=== PATIENT | female | born 1960 | race Caucasian/White ===

== ENCOUNTER → 2016-06-28 | Outpatient (CLI) | payer BC ==
[2016-06-28 13:20] LABS: ALBUMIN 3.9 GM/DL (3.2-5.2); ALBUMIN/GLOBULIN RATIO 1.11 (1.00-1.93); ALKALINE PHOSPHATASE 123 U/L (45-117); ALT/SGPT 34 U/L (12-78); ANION GAP 7 MEQ/L (8-16); AST/SGOT 24 U/L (15-37); BILIRUBIN,TOTAL 0.4 MG/DL (0.2-1.0); BLOOD UREA NITROGEN 17 MG/DL (7-18); CALCIUM LEVEL 9.4 MG/DL (8.5-10.1); CARBON DIOXIDE LEVEL 30 MEQ/L (21-32); CHLORIDE LEVEL 105 MEQ/L (98-107); CHOLESTEROL LEVEL 215 MG/DL (<200); CREATININE FOR GFR 0.71 MG/DL (0.55-1.02); FREE T4 1.38 NG/DL (0.76-1.46); GLOMERULAR FILTRATION RATE > 60.0 (>51); GLUCOSE, FASTING 92 MG/DL (70-105); POTASSIUM SERUM 4.2 MEQ/L (3.5-5.1); SODIUM LEVEL 142 MEQ/L (136-145); TOTAL PROTEIN 7.4 GM/DL (6.4-8.2); TRIGLYCERIDES LEVEL 133 MG/DL (<150)
== END ==
LOC: M WUC 09:04
PROVIDERS: ATTEND Nurse Practitioner Family
DX: E78.4 Other hyperlipidemia (principal); E03.9 Hypothyroidism, unspecified

== ENCOUNTER → 2016-09-10 | Outpatient (CLI) | payer BC ==
[2016-09-10 19:04] LABS: ALBUMIN 3.6 GM/DL (3.2-5.2); ALBUMIN/GLOBULIN RATIO 1.09 (1.00-1.93); ALKALINE PHOSPHATASE 135 U/L (45-117); ALT/SGPT 27 U/L (12-78); ANION GAP 6 MEQ/L (8-16); AST/SGOT 20 U/L (15-37); BILIRUBIN,TOTAL 0.3 MG/DL (0.2-1.0); BLOOD UREA NITROGEN 15 MG/DL (7-18); CALCIUM LEVEL 8.6 MG/DL (8.5-10.1); CARBON DIOXIDE LEVEL 28 MEQ/L (21-32); CHLORIDE LEVEL 107 MEQ/L (98-107); CHOLESTEROL LEVEL 184 MG/DL (<200); CREATININE FOR GFR 0.73 MG/DL (0.55-1.02); FREE T4 1.28 NG/DL (0.76-1.46); GLOMERULAR FILTRATION RATE > 60.0 (>51); GLUCOSE, FASTING 89 MG/DL (70-105); POTASSIUM SERUM 4.2 MEQ/L (3.5-5.1); SODIUM LEVEL 141 MEQ/L (136-145); TOTAL PROTEIN 6.9 GM/DL (6.4-8.2); TRIGLYCERIDES LEVEL 122 MG/DL (<150)
== END ==
LOC: M WUC 08:47
PROVIDERS: ATTEND Nurse Practitioner Family
DX: E55.9 Vitamin D deficiency, unspecified (principal); E03.9 Hypothyroidism, unspecified; E78.4 Other hyperlipidemia

== ENCOUNTER → 2017-05-06 | Outpatient (CLI) | payer BC ==
[2017-05-06 17:23] LABS: ALBUMIN 3.4 GM/DL (3.2-5.2); ALBUMIN/GLOBULIN RATIO 0.94 (1.00-1.93); ALKALINE PHOSPHATASE 131 U/L (45-117); ALT/SGPT 29 U/L (12-78); ANION GAP 6 MEQ/L (8-16); AST/SGOT 19 U/L (7-37); BILIRUBIN,TOTAL 0.3 MG/DL (0.2-1.0); BLOOD UREA NITROGEN 14 MG/DL (7-18); CALCIUM LEVEL 8.4 MG/DL (8.5-10.1); CARBON DIOXIDE LEVEL 28 MEQ/L (21-32); CHLORIDE LEVEL 110 MEQ/L (98-107); CHOLESTEROL LEVEL 199 MG/DL (<200); CHOLESTEROL RISK RATIO 4.326 (<5); CREATININE FOR GFR 0.72 MG/DL (0.55-1.30); FREE T3 2.4 PG/ML (2.2-4.0); FREE T4 1.08 NG/DL (0.76-1.46); GLOMERULAR FILTRATION RATE > 60.0 (>51); GLUCOSE, FASTING 89 MG/DL (70-100); HDL CHOLESTEROL 46 MG/DL (>40); NON-HDL-C 153 MG/DL; SODIUM LEVEL 144 MEQ/L (136-145); TOTAL 25(OH) VITAMIN D 40.1 NG/ML (30.0-100.0); TRIGLYCERIDES LEVEL 170 MG/DL (<150)
== END ==
LOC: M WUC 11:07
DX: E55.9 Vitamin D deficiency, unspecified (principal); E03.9 Hypothyroidism, unspecified; E78.4 Other hyperlipidemia
CPT/HCPCS: 84443

== ENCOUNTER → 2017-11-07 | Outpatient (CLI) | payer BC ==
[2017-11-07 13:47] LABS: BASO % 0.3 % (0.0-1.0); EOS # 0.1 10^3/uL (0.0-0.50); EOS % 1.5 % (0.0-3.0); HEMATOCRIT 37.8 % (36.0-47.0); HEMOGLOBIN 12.2 g/dl (12.0-15.5); IMMATURE GRANULOCYTE % 0.4 % (0-3.0); LYMPH # 2.5 10^3/uL (1.5-4.5); LYMPH % 34.3 % (24.0-44.0); MEAN CORPUSCULAR HEMOGLOBIN 28.3 pg (27.0-33.0); MEAN CORPUSCULAR HGB CONC 32.3 g/dl (32.0-36.5); MEAN CORPUSCULAR VOLUME 87.7 fl (80.0-96.0); MONO # 0.6 10^3/uL (0.0-0.8); MONO % 7.6 % (0.0-5.0); NEUTROPHILS # 4.1 10^3/uL (1.8-7.7); NEUTROPHILS % 55.9 % (36.0-66.0); PLATELET COUNT, AUTOMATED 231 10^3/uL (150-450); RED BLOOD COUNT 4.31 10^6/uL (4.00-5.40); RED CELL DISTRIBUTION WIDTH 14.1 % (11.5-14.5); WHITE BLOOD COUNT 7.3 10^3/uL (4.0-10.0)
[2017-11-07 14:42] LABS: TOTAL 25(OH) VITAMIN D 28.7 NG/ML (30.0-100.0)
[2017-11-07 14:44] LABS: ALBUMIN 3.6 GM/DL (3.2-5.2); ALBUMIN/GLOBULIN RATIO 0.92 (1.00-1.93); ALKALINE PHOSPHATASE 138 U/L (45-117); ALT/SGPT 31 U/L (12-78); ANION GAP 9 MEQ/L (8-16); AST/SGOT 16 U/L (7-37); BILIRUBIN,TOTAL 0.4 MG/DL (0.2-1.0); BLOOD UREA NITROGEN 8 MG/DL (7-18); CALCIUM LEVEL 8.8 MG/DL (8.5-10.1); CARBON DIOXIDE LEVEL 29 MEQ/L (21-32); CHLORIDE LEVEL 104 MEQ/L (98-107); CHOLESTEROL LEVEL 213 MG/DL (<200); CHOLESTEROL RISK RATIO 4.733 (<5); CREATININE FOR GFR 0.67 MG/DL (0.55-1.30); FREE T3 2.7 PG/ML (2.2-4.0); GLOMERULAR FILTRATION RATE > 60.0 (>51); GLUCOSE, FASTING 88 MG/DL (70-100); HDL CHOLESTEROL 45 MG/DL (>40); LDL CHOLESTEROL 118.4 MG/DL (<100); NON-HDL-C 168 MG/DL; POTASSIUM SERUM 4.2 MEQ/L (3.5-5.1); SODIUM LEVEL 142 MEQ/L (136-145); TOTAL PROTEIN 7.5 GM/DL (6.4-8.2); TRIGLYCERIDES LEVEL 248 MG/DL (<150)
== END ==
LOC: M WUC 08:16
DX: K21.9 Gastro-esophageal reflux disease without esophagitis (principal); E55.9 Vitamin D deficiency, unspecified; E03.9 Hypothyroidism, unspecified; E78.4 Other hyperlipidemia
CPT/HCPCS: 84443

== ENCOUNTER → 2018-06-24 | Outpatient (REF) | LOC: M LAB 08:27 | PROVIDERS: ATTEND Nurse Practitioner Adult Health | DX: Z02.89 Encounter for other administrative examinations (principal) ==

== ENCOUNTER → 2019-04-03 | Outpatient (REF) | payer BC ==
[2019-04-03 12:19] LABS: ALBUMIN 3.6 GM/DL (3.2-5.2); ALT/SGPT 27 U/L (12-78); BILIRUBIN,TOTAL 0.4 MG/DL (0.2-1.0); BLOOD UREA NITROGEN 11 MG/DL (7-18); CALCIUM LEVEL 8.9 MG/DL (8.5-10.1); CARBON DIOXIDE LEVEL 26 MEQ/L (21-32); CHLORIDE LEVEL 107 MEQ/L (98-107); CHOLESTEROL LEVEL 198 MG/DL (<200); CREATININE FOR GFR 0.76 MG/DL (0.55-1.30); GLOMERULAR FILTRATION RATE > 60.0 (>51); GLUCOSE, FASTING 90 MG/DL (70-100); HDL CHOLESTEROL 50 MG/DL (>40); LDL CHOLESTEROL 109 MG/DL (<100); NON-HDL-C 148 MG/DL; POTASSIUM SERUM 4.1 MEQ/L (3.5-5.1); SODIUM LEVEL 141 MEQ/L (136-145); TOTAL PROTEIN 7.2 GM/DL (6.4-8.2); TRIGLYCERIDES LEVEL 197 MG/DL (<150)
== END ==
LOC: M SFHCPLAZ 10:20
PROVIDERS: ATTEND Nurse Practitioner Adult Health
DX: I10 Essential (primary) hypertension (principal); E78.2 Mixed hyperlipidemia; E03.9 Hypothyroidism, unspecified; E55.9 Vitamin D deficiency, unspecified

== ENCOUNTER → 2019-06-11 | Outpatient (CLI) | payer BC ==
--- NOTE | 2019-06-12 08:19 | REPMRS ---
Patient History The patient states she had a clinical breast exam in May 2019.Family history of colorectal cancer at age 50 or over in paternal grandmother, colorectal cancer at age 50 or over in maternal grandfather. Benign radio exam breast specimen, September 06, 2014. Benign localization of breast nodule of the left breast, September 06, 2014. Digital Woman Screen Mammo: June 11, 2019 - Exam #: [id number] Bilateral CC and MLO view(s) were taken. Technologist: Li Dutton, Technologist Prior study comparison: April 06, 2015, left breast digital mammo diagnostic unilateral, performed at [facility]. May 26, 2014, left breast digital mammo diagnostic unilateral, performed at [facility]. FINDINGS: There are scattered fibroglandular densities. There has been no change in the appearance of the mammogram from the prior studies. There is a mild amount of scattered fibroglandular density which is fairly symmetric. There is no interval development of dominant mass, architectural distortion, or grouped microcalcification suggestive of malignancy. 3-D tomosynthesis shows no additional findings. Assessment: BI-RADS/ACR category 1 mammogram. Negative Mammogram. Recommendation Routine screening mammogram of both breasts in 1 year (for women over age 40). is patient's Lifetime Breast Cancer Risk is estimated at 7.3 %. This mammogram was interpreted with the aid of an FDA-approved computer-aided dectection system. Electronically Signed By: Mehran Rodríguez MD 06/12/19 0818
== END ==
LOC: M WHC 16:10
PROVIDERS: ATTEND Nurse Practitioner Adult Health
DX: Z12.31 Encounter for screening mammogram for malignant neoplasm of breast (principal)

== ENCOUNTER → 2019-10-01 | Outpatient (REF) | payer BC | LOC: M SFHCPLAZ 15:44 | PROVIDERS: ATTEND Nurse Practitioner Adult Health | DX: E03.9 Hypothyroidism, unspecified (principal) ==

== ENCOUNTER → 2019-10-19 | Outpatient (CLI) | payer BC ==
--- NOTE | 2019-10-19 10:37 | PFTRPT ---
Height: 65.00 Inches Weight: 309.00 Lbs BSA: 2.38 Diagnosis: R06.02 DATE OF PROCEDURE: 10/19/2019 ORDERED BY: Tatum Santana Spirometry: Pre and post bronchodilator study of excellent technical quality. Some mild difficulty with effort. Forced vital capacity reduced. FEV1 in proportion. Obstructive index is, therefore, normal. Flow Volume Loop: Expiratory limb of the flow volume loop does suggest a restrictive impairment. No significant bronchodilator response identified. Lung Volumes: Total lung capacity reduced. Residual volume is in proportion. Diffusing Capacity: Diffusing capacity normal. Hemoglobin: Hemoglobin not available for correction. Airway Mechanics: Airway resistance and conductance are normal. IMPRESSION: Mild restrictive ventilatory impairment. Please correlate clinically. MTDD
== END ==
LOC: M CARPUL 09:48
PROVIDERS: ATTEND Nurse Practitioner Adult Health
DX: R06.02 Shortness of breath (principal)

== ENCOUNTER → 2019-11-09 | Outpatient (CLI) | payer BC ==
--- NOTE | 2019-12-10 12:24 | PFTRPT ---
Height: 65.00 Inches Weight: 310.00 Lbs BSA: 2.38 Diagnosis: R06.02 DATE OF STUDY: 11/09/2019 ORDERED BY: ARTURO Nathan. QUALITY: Study of excellent technical quality. PROCEDURE: Under protocol, methacholine was administered. At a dose of 25 mg or 188.875 CDUs, a 25% decline of the FEV1 was noted, but PC of 14.28 does not meet diagnostic criteria. Flow rates did return to baseline post-bronchodilator administration. IMPRESSION: Indeterminate, most likely negative, methacholine challenge study in view of the above. Please correlate clinically. MTDD
--- NOTE | 2019-12-11 15:34 | METHCHAL ---
Ordering Provider: Tatum Santana R.N., A.N.P. Quality: Study is excellent technical quality. Procedure: Under protocol, methacholine is administered. With a dose of 25 mg or 18.875 CVUs, a 25% decline in the FEV1 was noted. PC of 14.28, however, does not meet diagnostic criteria. IMPRESSION: Indeterminant study. Flow rates did return to baseline post bronchodilator administration. Please correlate clinically MTDD
== END ==
LOC: M CARPUL 12:45
PROVIDERS: ATTEND Nurse Practitioner Adult Health
DX: R06.02 Shortness of breath (principal)

== ENCOUNTER → 2019-12-18 | Outpatient (CLI) | payer BC ==
--- NOTE | 2020-01-01 09:04 | REPPI ---
LUMBOSACRAL SPINE SERIES: CLINICAL: Lower back pain. TECHNIQUE: AP, lateral, bilateral oblique and coned down views of the lumbosacral spine. FINDINGS: Generalized age related osteopenia is appreciated. Alignment and lordosis are maintained. Vertebral bodies are intact and without acute fracture/compression injury or subluxation. No obvious healed injury. Moderate multilevel degenerative changes include endplate sclerosis, marginal spurring, hypertrophic facet changes and minimal disc space narrowing at multiple levels. IMPRESSION: Age related osteopenia and moderate multilevel degenerative changes. No evidence of acute or healed injury. MTDD
== END ==
LOC: M PLAIMG 09:28
PROVIDERS: ATTEND Nurse Practitioner Adult Health
DX: M25.78 Osteophyte, vertebrae (principal); M54.5 Low back pain

== ENCOUNTER → 2020-01-21 | Outpatient (CLI) | payer BC ==
[~2020-01-21] MED LIST: PROHANCE 279.3MG/ML 15ML VIAL As Ordered ONE; PROHANCE 279.3MG/ML 5ML VIAL As Ordered ONE
--- NOTE | 2020-01-21 18:36 | REPVR ---
PROCEDURE INFORMATION: Exam: MR Lumbar Spine Without and With Contrast. Exam date and time: 01/21/2020 4:51 PM Age: 59 years old Clinical indication: Other: Radiculopathy lumbar myelop ? hnp stenosi mets TECHNIQUE: Imaging protocol: Multiplanar magnetic resonance images of the lumbar spine without and with intravenous contrast. Contrast material: PROHANCE; Contrast volume: 20 ml; Contrast route: INTRAVENOUS (IV); COMPARISON: CR SPINE LS COMPLETE 12/18/2019 10:00 AM FINDINGS: Vertebrae: There is no lumbar vertebral fracture. The lumbar vertebra maintain their height and alignment. There are incidental hemangiomas noted, the largest within the L2 and L4 vertebral bodies. Stir images demonstrate no evidence of bone marrow edema or marrow infiltrating lesion. There is no abnormal bone marrow enhancement. Spinal cord: The lower thoracic spinal cord, conus and cauda equina are normal. No abnormal enhancement. L1-L2: No significant disc disease. No significant spinal canal stenosis. No neural foraminal stenosis. L2-L3: No disc bulge. There is mild facet hypertrophy. No central or foraminal stenosis. L3-L4: Minimal disc bulge. There is facet hypertrophy. There is mild left foraminal stenosis. No central stenosis. L4-L5: Mild disc bulge and facet hypertrophy with mild bilateral foraminal stenosis. There is a small more focal protrusion of the disc within the inferior aspect of neural foramen,, effacing the fat along the undersurface of the exiting right L4 nerve root. No central stenosis. L5-S1: No disc bulge. Facet hypertrophy mildly narrowing the right foramen. No central stenosis. Soft tissues: There is no paraspinous or intraspinal mass, hemorrhage, fluid collection or abnormal enhancement. IMPRESSION: 1. No lumbar fracture. No evidence of metastatic disease in the lumbar spine. 2. Mild disc disease and facet arthropathy, detailed above. No central stenosis. Electronically signed by: Danish Paulino On 01/21/2020 18:36:20 PM
== END ==
LOC: M RAD 14:44
PROVIDERS: ATTEND Physician Assistant
DX: M47.817 Spondylosis without myelopathy or radiculopathy, lumbosacral region (principal); M51.26 Other intervertebral disc displacement, lumbar region
CPT/HCPCS: 72158; A9576

== ENCOUNTER 2020-01-25 08:51 | Outpatient (RCR) | payer BC | END 2020-01-30 | LOC: M PT 08:51 | PROVIDERS: ATTEND Physician Assistant | DX: M47.817 Spondylosis without myelopathy or radiculopathy, lumbosacral region (principal) ==

== ENCOUNTER → 2020-06-16 | Outpatient (REF) | payer BC ==
[2020-06-16 14:21] LABS: ALBUMIN 3.8 GM/DL (3.2-5.2); ALT/SGPT 32 U/L (12-78); BILIRUBIN,TOTAL 0.3 MG/DL (0.2-1.0); BLOOD UREA NITROGEN 21 MG/DL (7-18); CALCIUM LEVEL 9.5 MG/DL (8.5-10.1); CARBON DIOXIDE LEVEL 32 MEQ/L (21-32); CHLORIDE LEVEL 103 MEQ/L (98-107); CHOLESTEROL LEVEL 203 MG/DL (<200); CHOLESTEROL RISK RATIO 4.413 (<5); CREATININE FOR GFR 0.79 MG/DL (0.55-1.30); GLOMERULAR FILTRATION RATE > 60.0 (>51); GLUCOSE, FASTING 108 MG/DL (70-100); HDL CHOLESTEROL 46 MG/DL (>40); LDL CHOLESTEROL 109 MG/DL (<100); NON-HDL-C 157 MG/DL; POTASSIUM SERUM 3.8 MEQ/L (3.5-5.1); SODIUM LEVEL 140 MEQ/L (136-145); TOTAL PROTEIN 7.6 GM/DL (6.4-8.2); TRIGLYCERIDES LEVEL 238 MG/DL (<150)
[2020-06-16 15:57] LABS: TOTAL 25(OH) VITAMIN D 66.2 NG/ML (30.0-100.0)
== END ==
LOC: M SFHCPLAZ 11:22
PROVIDERS: ATTEND Nurse Practitioner Adult Health
DX: E55.9 Vitamin D deficiency, unspecified (principal); I10 Essential (primary) hypertension; E78.2 Mixed hyperlipidemia; E03.9 Hypothyroidism, unspecified

== ENCOUNTER → 2020-07-07 | Outpatient (CLI) | payer BC ==
--- NOTE | 2020-07-07 10:44 | REPMRS ---
Patient History The patient states she has not had a clinical breast exam in over a year. Family history of colorectal cancer at age 50 or over in paternal grandmother, colorectal cancer at age 50 or over in maternal grandfather. Benign radio exam breast specimen, September 06, 2014. Benign localization of breast nodule of the left breast, September 06, 2014. 3D TOMOSYNTHESIS WAS PERFORMED. The [facility] lifetime risk for breast cancer is 7.1%. Volpara breast density b. Digital Woman Screen Mammo: July 07, 2020 - Exam #: [id number] Bilateral CC and MLO view(s) were taken. Technologist: RT Martha Prior study comparison: June 11, 2019, bilateral digital woman screen mammo performed at [facility]. April 06, 2015, left breast digital mammo diagnostic unilateral, performed at [facility]. FINDINGS: There are scattered fibroglandular densities. There has been no change in the appearance of the mammogram from the prior studies. There is a mild amount of residual fibroglandular tissue which is fairly symmetric. There is no interval development of dominant mass, architectural distortion, or clustered microcalcification suggestive of malignancy. Assessment: BI-RADS/ACR category 1 mammogram. Negative Mammogram. Recommendation Routine screening mammogram in 1 year (for women over age 40). This mammogram was interpreted with the aid of an FDA-approved computer-aided dectection system. Electronically Signed By: Dada Shafer MD 07/07/20 1045
== END ==
LOC: M WHC 08:56
PROVIDERS: ATTEND Nurse Practitioner Adult Health
DX: Z12.31 Encounter for screening mammogram for malignant neoplasm of breast (principal)

== ENCOUNTER 2021-01-16 07:31 | Emergency (ER) | payer OTHER, BC ==
[~2021-01-16] VITALS: Ht 165.1 cm; Wt 140.4 kg
--- OUTSIDE RECORDS SUMMARY | 2021-01-16 07:36 | CCD | Continuity of Care Document ---
Author Author Kenisha CORTEZ PA-C Organization Unknown Address [address] [place] [address] Phone [phone] Care Team Providers Care Automobile Mechanic Apprentice Name Role Phone Tatum Santana AUTM [phone] Problems Description No Active Problems Social History Type Date Description Comments Sex Unknown ETOH Use Denies alcohol use Tobacco Use Start: Unknown Patient has never smoked Allergies, Adverse Reactions, Alerts Active Allergies Criticality Reaction | Severity Comments Date Penicillin Unable to assess criticality 09/09/2014 sulfa drugs Unable to assess criticality 09/09/2014 Morphine Unable to assess criticality 09/09/2014 Medications Active Medications SIG Qnty Indications Ordering Provide r Date Multi Vitamin Daily Tablets every day Unknown Gemfibrozil 600mg Tablets 1 by mouth twice a day Unknown Levothyroxine Sodium 200mcg Tablet s 1 by mouth every day Unknown Paroxetine HCL 20mg Tablets 1 by mouth every day Unknown Prilosec 20mg Capsules DR 1 by mouth every day Unknown Lumigan 0.01% Solution once a day as directed Unknown Zyrtec 20mg Capsules po qd Unknown Lipitor 40mg Tablets 1 by mouth every day Unknown Flaxseed Oil 1000mg Capsules every day Unknown Motrin Ib 200mg Tablets po 3 at a time qd Unknown Immunizations Description No Information Available Vital Signs Date Vital Result Comment 01/01/2020 9:54am Body Temperature 96.7 F Height 64.5 inches 5'4.50" Weight 309.12 lb BMI (Body Mass Index) 52.2 kg/m2 06/02/2015 9:24am Body Temperature 99.5 F Results Description No Information Available Procedures Date Code Description Status 12/12/2020 60439 Office/Outpatient Established Mo d MDM 30-39 Min Completed 12/12/2020 99092 X-Ray Spine Lumbosacral Complete Inc Bending Views Min Of 6 Completed Medical Devices Description No Information Available Encounters Type Date Location Provider Dx Diagnosis Office Visit 12/12/2020 3:45p [place] James Cortez PA-C M4 7.817 Spondyls w/o myelopathy or radiculopathy, lumbosacr region M51.35 Other intervertebral disc de generation, thoracolumbar region Assessments Date Code Description Provider 12/12/2020 M47.817 Spondylosis without myelopathy or radiculopathy, lumbosacral region James Cortez PA-C 12/12/2020 M51.35 Other intervertebral disc degene ration, thoracolumbar region James Cortez PA-C Plan of Treatment 12/12/2020 - James Cortez PA-C* M47.817 Spondylosis without myelopathy or radiculopathy, lumbosacral region* New Orders:* Referral, Ordered: 12/12/20 * Follow up:* PRN * M51.35 Other intervertebral disc degeneration, thoracolumbar region Functional Status Description No Information Available Mental Status Description No Information Available Referrals Description No Information Available
--- OUTSIDE RECORDS SUMMARY | 2021-01-16 07:36 | CCD ---
Author Author [facility] Organization [facility] Address Unknown Phone Unavailable Care Team Providers Care [employer] Assistant Principal Name Role Phone Tatum Santana Unavailable PROBLEMS Type Condition ICD9-CM Code LEO59-FW Code Onset Dates Condition S tatus W/U Status Risk SNOMED Code Notes Problem Irritable bowel syndrome with diarrhea K58.0 A ctive confirmed 765135049 Problem Restless leg syndrome G25.81 Active confirmed 61312963 Problem Acquired hypothyroidism E03.9 Active confirmed 866207707 Problem Glaucoma of both eyes, unspecified glaucoma type H 40.9 Active confirmed 49651782 Problem Environmental allergies Z91.09 Active confirmed 968665645 Problem Mixed hyperlipidemia E78.2 Active confirmed 092340868 Problem BMI 50.0-59.9, adult Z68.43 Active confirmed 872726435 Problem Obesity, morbid, BMI 50 or higher E66.01 Active confirmed 687586438 Problem Essential hypertension I10 Active confirmed 95733570 Problem Vitamin D deficiency E55.9 Active confirmed 05478103 Problem Lumbago with sciatica, left side M54.42 Active confirmed 309331702 Problem Other chronic pain G89.29 Active confirmed 8 1670384 ALLERGIES Allergen (clinical drug ingredient) Drug/Non Drug Allergy do cumented on EMR Reaction Allergy Type Onset Date Status Sulfa (for allergy use only) Hives Drug Allergy Active Penicillin (For Allergies Use Only) SOB Drug Allerg y Active tape rash Non Drug Allergy Active cold medicine "Higher than a kite" pt states Non Drug Philippe rgy Active morphine Morphine Sulfate(NDC Code:[address]-95) "Higher than a kite" pt states Drug Allergy Active Neosporin(NDC Code:02819-73536) rash/ blisters Drug Allerg y Active Eggs/Apples/Oats([facility] Code:40132-[address]4905) Unknown Drug All ergy Active ENCOUNTERS from 1960 to 2020-10-29 Encounter Location Date Provider Diagnosis [facility] Francois [address] [facility] [facility] [phone] [place] [address] Sep, Tatum Servage Lumbago with sciatica, left side M54.42 ; Essential hypertension I10 ; Irritable bowel syndrome with diarrhea K58.0 ; Glaucoma of both eyes, unspecified glaucoma type H40.9 ; Mixed hyperlipidemia E78.2 ; Acquired hypothyroidism E03.9 ; Obesity, morbid, BMI 50 or higher E66.01 ; Vitamin D deficiency E55.9 ; Dizzy spells R42 and Environmental allergies Z91.09 IMMUNIZATIONS Vaccine Route Administration Date Status Influenza 6mo & up Fluzone Unknown Jan 26, 2020 Other s SOCIAL HISTORY Tobacco Use: Social History Observation Description Date Details (start date - stop date) Never Smoker Sex Assigned At : Social History Observation Description Sex Assigned At Unknown Education: Question Answer Notes Level of Education: [facility] Audit Question Answer Notes Total Score: 0 Interpretation: Alcohol Education Language: Question Answer Notes Languages spoken: Kinyarwanda Cheondoism: Question Answer Notes Cheondoism 08 Jewish Sexual Hx: Question Answer Notes Had sex in the last 12 months (vaginal, oral, or anal)? No LMP: hysterectomy Have you ever had an STD? No Drug and Alcohol Question Answer Notes Total Score: 0 Interpretation: No problems reported Alcohol Screening: Question Answer Notes Did you have a drink containing alcohol in the past year? No Points 0 Interpretation Negative Tobacco Use: Question Answer Notes Are you a: never smoker never smoker REASON FOR REFERRAL No Information VITAL SIGNS Weight 308.8 lbs Sep, Height 64.5 in Sep, BMI 52.18 kg/m2 Sep, Heart Rate 90 /min Sep, Respiratory Rate 18 /min Sep, Temperature 98.5 degrees Fahrenheit Sep, Oximetry 98% Sep, Blood pressure systolic 122 mm Hg Sep, Blood pressure diastolic 80 mm Hg Sep, MEDICATIONS Medication SIG (Take, Route, Frequency, Duration) Notes Start Da te End Date Status Drisdol 1.25 MG (91810 UT) 1 capsule Orally weekly for 90 days Active Refresh Dry Eye Therapy A ctive Montelukast Sodium 10 MG 1 tablet Orally Once a day for 90 days Jan, Active Paxil 20 mg 1 tablet in the morning Orally Once a day for 90 day(s) Jan, Active Levothyroxine Sodium 175 MCG 1 tablet in the morning o n an empty stomach Orally Once a day for 90 days Active Avapro 75 MG 1 tablet Orally Once a day for 90 days Active Multivitamins otc 1 tablet Orally once a day Active Bacid - 1 tab Orally Daily Active PriLOSEC OTC 20 MG 1 tablet Orally Once a day for 90 day(s) Active Lumigan 0.03 % 1 drop into affected eye every evening Ophthalmic On a day Active Atorvastatin Calcium 80 mg 1 tab(s) p.o. Once a day for 90 days Active Hydrochlorothiazide 12.5 MG 1 tablet in the morning Or ally Once a day for 90 days Active PROCEDURES No Information RESULTS No Results REASON FOR VISIT follow up end september MEDICAL (GENERAL) HISTORY Type Description Date Medical History Hypothyroidism Medical History hypertenison Medical History glaucoma both eyes Medical History seasonal allergies Medical History hyperlipidemia Medical History acid reflux Medical History TMJ Medical History Arthritis Medical History perimenopause Medical History atrophic vaginitis Medical History HRT for 1 yr only after hyster () Medical History morbid obesity (BMI 49.6) Medical History vitamin D deficiency Medical History 06/22/14: Stereotactic Lt brst bx planned ([facility])//NS Medical History 01/21/2020 MRI of the LS spi ne, mild disc disease and facet arthropathy no central stenosis Surgical History hysterectomy, total with BSO- Dr. Anand savage 09/2002 Surgical History tonsillectomy 28 yrs old Surgical History D&C Surgical History arm surgery, x 2 due to broken bones 9 a nd 16 yrs Surgical History colonoscopy- Dr. Reich 06/2013 Surgical History Needle localized excisional biopsy of left breast tissue-Dr. Galvez 08/2014 Surgical History Surgical arthroscopy of righ t knee with a partial meniscectomy and a medial plica resection. -Dr. Rebollar 05/2015 Goals Section No Information Health Concerns No Information MEDICAL EQUIPMENT No Information MENTAL STATUS No Information FUNCTIONAL STATUS No Information ASSESSMENTS Encounter Date Diagnosis Assessment Notes Treatment Notes Treatm ent Clinical Notes Sep, Lumbago with sciatica, left side (ICD-10 - M54.4 2) following with ortho, was going to therapy, MRI of lumbar spine reviewed. agreed to extend 10 hr work restriction for 3 months. 09/08/2020, reviewed form from [facility], signed release to get records from [facility] orthophoric exact diagnosis. Questions to 3 and 4 were reviewed and answered, strongly advised that she go back to [facility] orthopedics to complete her back care, that this office is only responsible for limiting her hours of work. And that if she has any further issues that need to be addressed at needs to come from [facility] ortho. Sep, Essential hypertension (ICD-10 - I10) Per JNC 8 guidelines, goal BP < 140/90 <60, is meeting goal on current regimen. Advised heart-healthy diet, sodium restriction takes hctz prn Sep, Irritable bowel syndrome with diarrhea (ICD-10 - K58.0) states she has had for years colonoscopy 07/07/13 indicated diverticulosis repeat 10 year survillance using metamucil fiber pills. with partial effect Sep, Glaucoma of both eyes, unspecified glauc jake type (ICD-10 - H40.9) follows with [facility] still upset they did a procedure that cost her 1500 not covered by insurance Sep, Mixed hyperlipidemia (ICD-10 - E78.2) remais on lipitor 80 mg po q day denies mylagia Sep, Acquired hypothyroidism (ICD-10 - E03.9) on replacement once again discussed taking on empty stomach with no other meds or food for 1 hr before and after Sep, Obesity, morbid, BMI 50 or higher (ICD-10 - E66. 01) discussed diet .food choices and exercise weight 308 today lost 5 lbs Sep, Vitamin D deficiency (ICD-10 - E55.9) remains on replacement weekly Sep, Dizzy spells (ICD-10 - R42) discussed may be eustation tube dysfunction, offer pt refuses today stressed this may help. Sep, Environmental allergies (ICD-10 - Z91.09) stable PLAN OF TREATMENT Medication Medication Name Sig Start Date Stop Date Drisdol 1.25 MG (53540 UT) 1 capsule Orally weekly for 90 days Lumigan 0.03 % 1 drop into affected eye every evening Ophthalmi c Once a day Atorvastatin Calcium 80 mg 1 tab(s) p.o. Once a day for 90 days Bacid - 1 tab Orally Daily Levothyroxine Sodium 175 MCG 1 tablet in the morning o n an empty stomach Orally Once a day for 90 days Avapro 75 MG 1 tablet Orally Once a day for 90 days Montelukast Sodium 10 MG 1 tablet Orally Once a day for 90 days Jan, Hydrochlorothiazide 12.5 MG 1 tablet in the morning Or ally Once a day for 90 days Treatment Notes Assessment Notes Clinical Notes Lumbago with sciatica, left side followi ng with ortho, was going to therapy,MRI of lumbar spine reviewed.agreed to extend 10 hr work restriction for 3 months.09/08/2020, reviewed form from [facility], signed release to get records from [facility] orthophor[facility] exact diagnosis.Questions to 3 and 4 were reviewed and answered, strongly advised that she go back to [facility] orthopedics to complete her back care, that this office is only responsible for limiting her hours of work. And that if she has any further issues that need to be addressed at needs to come from [facility] ortho. Essential hypertension Per JNC 8 guideli mari, goal BP < 140/90 <60, is meeting goal on current regimen. Advised heart-healthy diet, sodium restrictiontakes hctz prn Irritable bowel syndrome with diarrhea s tates she has had for yearscolonoscopy 07/07/13 indicated diverticulosis repeat 10 year survillanceusing metamucil fiber pills. with partial effect Glaucoma of both eyes, unspecified glaucoma [facility] 1500 not covered by insurance Mixed hyperlipidemia remais on lipitor 8 0 mg po q day denies mylagia Acquired hypothyroidism on replacement o nce again discussed taking on empty stomach with no other meds or food for 1 hr before and after Obesity, morbid, BMI 50 or higher discus sed diet .food choices and exercise weight 308 today lost 5 lbs Vitamin D deficiency remains on replacem ent weekly Dizzy spells discussed may be eus tation tube dysfunction, offer pt refuses today stressed this may help. Environmental allergies stable Next Appt Details as scheduled Reason: Provider Name:Tatum Santana, 03:00:00 PM, [address] [facility] [facility], , [place], [address], Insurance Providers Payer Name Payer Address Payer Phone Insured Name Patient Relati onship to Insured Coverage Start Date Coverage End Date [employer] [id number] [facility] [id number] KADY CARLSON self
--- OUTSIDE RECORDS SUMMARY | 2021-01-16 07:36 | CCD ---
Continuity of Care Document (CCD) Created on: 12/12/2020 Kenisha Leslie External Reference #: [id number] : [id number] Sex: Female Author Author Kenisha CORTEZ PA-C Organization Unknown Address [address] [place] [phone] Phone [phone] Care Team Providers Care Patrol Agent Name Role Phone Tatum Santana AUTM [phone] Problems Description No Active Problems Social History [...] Available Procedures Date Code Description Status 12/12/2020 53414 Office/Outpatient Established Mo d MDM 30-39 Min Completed 12/12/2020 05054 X-Ray Spine Lumbosacral Complete Inc Bending Views Min Of 6 Completed Medical Devices Description No Information Available Encounters Type Date Location Provider Dx Diagnosis Office Visit 12/12/2020 3:45p [place] James Cortez PA-C M4 7.817 Spondyls w/o [...]
--- OUTSIDE RECORDS SUMMARY | 2021-01-16 07:36 | CCD | Continuity of Care Document ---
Author Author Kenisha CORTEZ PA-C Organization Unknown Address [address] [place] [id number] Phone [phone] Care Team Providers Care Allergy Specialist Name Role Phone Tatum Santana AUTM [phone] Problems Active Problems Provider Date Essential hypertension Jerri Rebollar DO Onset: 12/14/2020 Social History Type Date Description Comments Sex [...] Multi Vitamin Daily Tablets every day Unknown Levothyroxine Sodium 200mcg Tablet s 1 by mouth every day Unknown Prilosec 20mg Capsules DR 1 by mouth every day Unknown Lipitor 40mg Tablets 1 by mouth every day Unknown Montelukast Sodium 10mg Tablets Unknown Irbesartan 75mg Tablets Unknown Paxil 20mg Tablets 1 by mo uth every day Unknown Metamucil 0.52gm Capsules Unknown Immunizations Description No Information Available Vital Signs Date Vital Result Comment 01/01/2020 9:54am Body Temperature 96.7 F Height 64.5 inches 5'4.50" Weight 309.12 lb BMI (Body Mass Index) 52.2 kg/m2 06/02/2015 9:24am Body Temperature 99.5 F Results Description No Information Available Procedures Date Code Description Status 12/12/2020 48910 Office/Outpatient Established Lo w MDM 20-29 Min Completed 12/12/2020 62260 X-Ray Spine Lumbosacral Complete Inc Bending Views Min Of 6 Completed Medical Devices Description No Information Available Encounters Type Date Location Provider Dx Diagnosis Office Visit 12/12/2020 3:45p [place] James Cortez PA-C M5 1.16 Intervertebral disc disorders w radiculopathy, lumbar region Assessments Date Code Description Provider 12/12/2020 M51.16 Intervertebral disc disorders with radiculopathy, lumbar region James Cortez PA-C Plan of Treatment 12/12/2020 - James Cortez PA-C* M51.16 Intervertebral disc disorders with radiculopathy, lumbar region* New Orders:* Referral, Ordered: 12/12/20 * Follow up:* PRN Functional Status Description No Information Available Mental Status Description No Information Available Referrals Description No Information Available
--- OUTSIDE RECORDS SUMMARY | 2021-01-16 07:37 | CCD ---
Author Author [facility] Organization [facility] Address Unknown Phone Unavailable Care Team Providers Care Apartment Maintenance Worker Name Role Phone KERRIE, Mile HARO Unavailable Unavailable LETTIERE, Mile HARO Unavailable Unavailable LETTIERE, Mile HARO Unavailable Unavailable LETTIERE, Mile HARO Unavailable Unavailable LETTIERE, Mile HARO Unavailable Unavailable LETTIERE, Mile JEAN-BAPTISTE PA Unavailable Unavailable LETTIERE, Mile JEAN-BAPTISTE PA Unavailable Unavailable LETTIERE, Mile JEAN-BAPTISTE PA Unavailable Unavailable LETTIERE, Mile JEAN-BAPTISTE PA Unavailable Unavailable LETTIERE, Mile JEAN-BAPTISTE PA Unavailable Unavailable LETTIERE, Mile JEAN-BAPTISTE PA Unavailable Unavailable LETTIERE, Mile JEAN-BAPTISTE PA Unavailable Unavailable LETTIERE, Mile JEAN-BAPTISTE PA Unavailable Unavailable LETTIERE, Mile JEAN-BAPTISTE PA Unavailable Unavailable LETTIERE, Mile JEAN-BAPTISTE PA Unavailable Unavailable LETTIERE, Mile JEAN-BAPTISTE PA Unavailable Unavailable LETTIERE, Mile JEAN-BAPTISTE PA Unavailable Unavailable LETTIERE, Mile JEAN-BAPTISTE PA Unavailable Unavailable LETTIERE, Mile JEAN-BAPTISTE PA Unavailable Unavailable LETTIERE, Mile JEAN-BAPTISTE PA Unavailable Unavailable LETTIERE, Mile JEAN-BAPTISTE PA Unavailable Unavailable LETTIERE, Mile JEAN-BAPTISTE PA Unavailable Unavailable LETTIERE, Mile JEAN-BAPTISTE PA Unavailable Unavailable LETTIERE, Mile JEAN-BAPTISTE PA Unavailable Unavailable LETTIERE, Mile JEAN-BAPTISTE PA Unavailable Unavailable LETTIERE, Mile JEAN-BAPTISTE PA Unavailable Unavailable LETTIERE, A JERILYN PA Unavailable Unavailable LETTIERE, A JERILYN PA Unavailable Unavailable LETTIERE, A JERILYN PA Unavailable Unavailable LETTIERE, A JERILYN PA Unavailable Unavailable LETTIERE, A JERILYN PA Unavailable Unavailable Crow, Mamta Priscila PA Unavailable Unavailable Crow, Mamta Priscila PA Unavailable Unavailable Crow, Mamta Priscila PA Unavailable Unavailable Crow, Mamta Priscila PA Unavailable Unavailable Crow, Mamta Priscila PA Unavailable Unavailable Crow, Mamta Priscila PA Unavailable Unavailable Crow, Mamta Priscila PA Unavailable Unavailable Crow, Mamta Priscila PA Unavailable Unavailable Crow, Mamta Priscila PA Unavailable Unavailable Crow, Mamat Priscila PA Unavailable Unavailable Cortez, M Barratt PA Unavailable Unavailable Cortez, M Barratt PA Unavailable Unavailable Cortez, M Barratt PA Unavailable Unavailable Cortez, M Barratt PA Unavailable Unavailable Cortez, M Barratt PA Unavailable Unavailable Cortez, M Barratt PA Unavailable Unavailable Cortez, M Barratt PA Unavailable Unavailable Cortez, M Barratt PA Unavailable Unavailable Cortez, M Barratt PA Unavailable Unavailable Cortez, M Barratt PA Unavailable Unavailable Cortez, M Barratt PA Unavailable Unavailable Cortez, M Barratt PA Unavailable Unavailable Cortez, M Barratt PA Unavailable Unavailable Cortez, M Barratt PA Unavailable Unavailable Cortez, M Barratt PA Unavailable Unavailable Cortez, M Barratt PA Unavailable Unavailable Cortez, M Barratt PA Unavailable Unavailable Cortez, M Barratt PA Unavailable Unavailable Cortez, M Barratt PA Unavailable Unavailable Cortez, M Barratt PA Unavailable Unavailable Cortez, M Barratt PA Unavailable Unavailable Cortez, M Barratt PA Unavailable Unavailable Cortez, M Barratt PA Unavailable Unavailable Cortez, M Barratt PA Unavailable Unavailable Cortez, M Barratt PA Unavailable Unavailable Cortez, M Barratt PA Unavailable Unavailable Cortez, M Barratt PA Unavailable Unavailable Cortez, M Barratt PA Unavailable Unavailable Cortez, M Barratt PA Unavailable Unavailable ZAHIRA, M JASMIN PA Unavailable Unavailable ZAHIRA, M JASMIN PA Unavailable Unavailable ZAHIRA, M JASMIN PA Unavailable Unavailable ZAHIRA, M JASMIN PA Unavailable Unavailable ZAHIRA, M JASMIN PA Unavailable Unavailable ZAHIRA, M JASMIN PA Unavailable Unavailable ZAHIRA, M JASMIN PA Unavailable Unavailable ZAHIRA, M JASMIN PA Unavailable Unavailable ZAHIRA, M JASMIN PA Unavailable Unavailable ZAHIRA, M JASMIN PA Unavailable Unavailable ZAHIRA, M JASMIN PA Unavailable Unavailable ZAHIRA, M JASMIN PA Unavailable Unavailable ZAHIRA, M JASMIN PA Unavailable Unavailable ZAHIRA, M JASMIN PA Unavailable Unavailable ZAHIRA, M JASMIN PA Unavailable Unavailable ZAHIRA, M JASMIN PA Unavailable Unavailable ZAHIRA, M JASMIN PA Unavailable Unavailable ZAHIRA, M JASMIN PA Unavailable Unavailable ZAHIRA, M JASMIN PA Unavailable Unavailable ZAHIRA, M JASMIN PA Unavailable Unavailable ZAHIRA, M JASMIN PA Unavailable Unavailable ZAHIRA, M JASMIN PA Unavailable Unavailable ZAHIRA, M JASMIN PA Unavailable Unavailable ZAHIRA, M JASMIN PA Unavailable Unavailable Re-disclosure Warning The records that you are about to access may contain information from federally-assisted alcohol or drug abuse programs. If such information is present, then the following federally mandated warning applies: This information has been disclosed to you from records protected by federal confidentiality rules (42 CFR part 2). The federal rules prohibit you from making any further disclosure of this information unless further disclosure is expressly permitted by the written consent of the person to whom it pertains or as otherwise permitted by 42 CFR part 2. A general authorization for the release of medical or other information is NOT sufficient for this purpose. The Federal rules restrict any use of the information to criminally investigate or prosecute any alcohol or drug abuse patient.The records that you are about to access may contain highly sensitive health information, the redisclosure of which is protected by Article 27-F of the [facility] Public Health law. If you continue you may have access to information: Regarding HIV / AIDS; Provided by facilities licensed or operated by the [facility] Office of Mental Health; or Provided by the [facility] Office for People With Developmental Disabilities. If such information is present, then the following [facility] mandated warning applies: This information has been disclosed to you from confidential records which are protected by state law. State law prohibits you from making any further disclosure of this information without the specific written consent of the person to whom it pertains, or as otherwise permitted by law. Any unauthorized further disclosure in violation of state law may result in a fine or intermediate sentence or both. A general authorization for the release of medical or other information is NOT sufficient authorization for further disc losure. Family History Family Member Name Family Member Gender Family Member Status Date o f Status Description Data Source(s) Unknown Female Problem [facility] ([facility]) Unknown Female Problem [facility] ([facility]) Unknown Female Problem [facility] ([facility]) Unknown Female Problem [facility] ([facility]) Unknown Female Problem [facility] ([facility]) Unknown Unknown Problem [facility] ([facility] Encounters Encounter Providers Location Date Indications Data Source(s ) OFFICE OUTPATIENT VISIT 15 MINUTES Attender: James HARO Physical Therapy 12/12/2020 03:45:00 PM EDT [facility] ([facility]) [place] [address] [facility] [address] 10/27/2020 12:00:00 AM EDT [facility]CW1 ([facility]) [place] [address] [facility] [address] 10/24/2020 12:00:00 AM EDT eCW1 ([facility]) [place] [address] [facility] [address] 09/08/2020 12:00:00 AM EDT eCW1 ([facility]) [place] [address] [address] 08/30/2020 12:00:00 AM EDT eCW1 ([facility]) [place] [address] [facility] [address] 08/25/2020 12:00:00 AM EDT eCW1 ([facility]) [place] [address] [address] 08/19/2020 12:00:00 AM EDT eCW1 ([facility]) [place] [address] [address] 08/16/2020 12:00:00 AM EDT eCW1 ([facility]) [place] [address] [address] 07/22/2020 12:00:00 AM EDT eCW1 ([facility]) [place] [address] [address] 07/07/2020 12:00:00 AM EDT [facility]CW1 [facility] [place] [address] [address] 06/16/2020 12:00:00 AM EDT eCW1 [facility]) [place] [address] [address] 05/24/2020 12:00:00 AM EST eCW1 [facility]) [place] [address] [address] 05/17/2020 12:00:00 AM EST eCW1 [facility]) Outpatient Attender: Priscila lyn 04/15/2020 01:30:00 PM EST [facility] ([facility]) [place] [address] [address] 04/12/2020 12:00:00 AM EST eCW1 [facility]) [place] [address] [address] [address] 04/05/2020 12:00:00 AM EST eCW1 [facility]) Outpatient Attender: JASMIN HARO Physical Therapy 05/2019 08:30:00 AM EST [facility] ([facility]) Outpatient [address] [facility] [place] [address] 01/26/2020 12:00:00 AM EDT eCW1 ([facility]) OFFICE OUTPATIENT NEW 30 MINUTES Attender: JASMIN HARO Phys ical Therapy 01/01/2020 09:30:00 AM EDT [facility] ([facility]) Outpatient Attender: JERILYN yln 11/25/2019 02:00:00 PM EDT [facility] ([facility]) Immunizations Vaccine Date Status Description Data Source(s) COVID-19 VACCINE Mila 12/16/2020 12:00:00 AM EDT completed [facility] Vaccine Series Complete: YESThis Data wa s Submitted to [facility] [employer]. New in 2011. IIV4 01/26/2020 12:59:00 PM EDT completed eCW1 ([facility]) New in 2011. IIV4 01/26/2020 12:59:00 PM EDT completed eCW1 ([facility]) New in 2011. IIV4 01/26/2020 12:59:00 PM EDT completed eCW1 ([facility]) New in 2011. IIV4 01/26/2020 12:59:00 PM EDT completed eCW1 ([facility]) New in 2011. IIV4 01/26/2020 12:59:00 PM EDT completed eCW1 ([facility]) New in 2011. IIV4 01/26/2020 12:59:00 PM EDT completed eCW1 ([facility]) New in 2011. IIV4 01/26/2020 12:59:00 PM EDT completed eCW1 ([facility]) New in 2011. IIV4 01/26/2020 12:59:00 PM EDT completed eCW1 ([facility]) New in 2011. IIV4 01/26/2020 12:59:00 PM EDT completed eCW1 ([facility]) New in 2011. IIV4 01/26/2020 12:59:00 PM EDT completed eCW1 ([facility]) New in 2011. IIV4 01/26/2020 12:59:00 PM EDT completed eCW1 ([facility]) New in 2011. IIV4 01/26/2020 12:59:00 PM EDT completed eCW1 ([facility]) New in 2011. IIV4 01/26/2020 12:59:00 PM EDT completed eCW1 ([facility]) New in 2011. IIV4 01/26/2020 12:59:00 PM EDT completed eCW1 ([facility]) New in 2011. IIV4 01/26/2020 12:59:00 PM EDT completed eCW1 ([facility]) Medications Medication Brand Name Start Date Product Form Dose Route Admi nistrative Instructions Pharmacy Instructions Status Indications Reaction Description Data Source(s) montelukast 10 MG Oral Tablet Montelukast Sodium 10 MG Tobi lukast Sodium 10 MG 02/22/2020 12:00:00 AM EST 1.0 {tablet} active Montelukast Sodium 10 MG eCW1 ([facility]) montelukast 10 MG Oral Tablet Montelukast Sodium 10 MG Tobi lukast Sodium 10 MG 02/22/2020 12:00:00 AM EST 1.0 {tablet} active Montelukast Sodium 10 MG eCW1 ([facility]) montelukast 10 MG Oral Tablet Montelukast Sodium 10 MG Tobi lukast Sodium 10 MG 02/22/2020 12:00:00 AM EST 1.0 {tablet} active Montelukast Sodium 10 MG eCW1 ([facility]) montelukast 10 MG Oral Tablet Montelukast Sodium 10 MG Tobi lukast Sodium 10 MG 02/22/2020 12:00:00 AM EST 1.0 {tablet} active Montelukast Sodium 10 MG eCW1 ([facility]) montelukast 10 MG Oral Tablet Montelukast Sodium 10 MG Tobi lukast Sodium 10 MG 02/22/2020 12:00:00 AM EST 1.0 {tablet} active Montelukast Sodium 10 MG eCW1 ([facility]) montelukast 10 MG Oral Tablet Montelukast Sodium 10 MG Tobi lukast Sodium 10 MG 02/22/2020 12:00:00 AM EST 1.0 {tablet} active Montelukast Sodium 10 MG eCW1 ([facility]) montelukast 10 MG Oral Tablet Montelukast Sodium 10 MG Tobi lukast Sodium 10 MG 02/22/2020 12:00:00 AM EST 1.0 {tablet} active Montelukast Sodium 10 MG eCW1 ([facility]) montelukast 10 MG Oral Tablet Montelukast Sodium 10 MG Tobi lukast Sodium 10 MG 02/22/2020 12:00:00 AM EST 1.0 {tablet} active Montelukast Sodium 10 MG eCW1 ([facility]) montelukast 10 MG Oral Tablet Montelukast Sodium 10 MG Tobi lukast Sodium 10 MG 02/22/2020 12:00:00 AM EST 1.0 {tablet} active Montelukast Sodium 10 MG eCW1 ([facility]) montelukast 10 MG Oral Tablet Montelukast Sodium 10 MG Tobi lukast Sodium 10 MG 02/22/2020 12:00:00 AM EST 1.0 {tablet} active Montelukast Sodium 10 MG eCW1 ([facility]) montelukast 10 MG Oral Tablet Montelukast Sodium 10 MG Tobi lukast Sodium 10 MG 02/22/2020 12:00:00 AM EST 1.0 {tablet} active Montelukast Sodium 10 MG eCW1 ([facility]) montelukast 10 MG Oral Tablet Montelukast Sodium 10 MG Tobi lukast Sodium 10 MG 02/22/2020 12:00:00 AM EST 1.0 {tablet} active Montelukast Sodium 10 MG eCW1 ([facility]) montelukast 10 MG Oral Tablet Montelukast Sodium 10 MG Tobi lukast Sodium 10 MG 02/22/2020 12:00:00 AM EST 1.0 {tablet} active Montelukast Sodium 10 MG eCW1 ([facility]) montelukast 10 MG Oral Tablet Montelukast Sodium 10 MG Tobi lukast Sodium 10 MG 02/22/2020 12:00:00 AM EST 1.0 {tablet} active Montelukast Sodium 10 MG eCW1 ([facility]) Hydrochlorothiazide 12.5 MG Oral Tablet Hydrochlorothiazide 12.5 MG 01/26/2020 12:00:00 AM EDT 1.0 {tablet_in_the_morning} acti ve Hydrochlorothiazide 12.5 MG eCW1 ([facility]) 200 ACTUAT Albuterol 0.09 MG/ACTUAT Metered Dose Inhaler [Pr oAir] Proair HFA 11/25/2019 12:00:00 AM EDT RESPIRATORY completed [facility] ([facility]) Doxycycline Monohydrate 100 MG Oral Tablet Doxycycline Monoh ydrate 11/25/2019 12:00:00 AM EDT ORAL completed [facility] ([facility]) Insurance Providers Payer name Policy type / Coverage type Policy ID Covered alliance party ID Covered alliance party's relationship to ha Policy Ha Plan Information [employer] [place] 306/806 [id number] SP [id number] [place] [place] P[place] 302/307 [id number] SP [id number] BS [place] [employer] [id number] Self [place] [employer]BS B [id number] [place] [id number] [employer] [place] 306/806 [id number] SP [id number] [place] PPO 302/307 [id number] SP [id number] [place] [employer] B [id number] S V[place] [id number] BC/[place] [id number] Self [place] PPO 302/307 [id number] SP [id number] [place] PPO 302/307 [id number] SP [id number] [employer] [place] 306/806 [id number] SP [id number] [place] PPO 302/307 [id number] SP [id number] Problems, Conditions, and Diagnoses Code Display Name Description Problem Type Effective Dates Data Source(s) 14197317 Essential hypertension Essential hypertension Problem 12/14/2020 12:00:00 AM EDT [facility] ([facility] ) Z68.43 [id number] BMI 50.0-59.9, adult Problem 06/16/2020 12:0 0:00 AM EDT eCW1 ([facility]) Z91.09 [id number] Environmental allergies Problem 02/22/2020 1 2:00:00 AM EST eCW1 ([facility]) G89.29 [id number] Other chronic pain Problem 01/26/2020 12:00: 00 AM EDT eCW1 ([facility]) M54.42 [id number] Lumbago with sciatica, left side Problem 01/26/2020 12:00:00 AM EDT eCW1 ([facility]) Surgeries/Procedures Procedure Description Date Indications Data Source(s) X-Ray Spine Lumbosacral Complete Inc Bending Views Min Of 6 12/12/2020 12:00:00 AM EDT [facility] ([facility]) OFFICE OUTPATIENT VISIT 15 MINUTES 12/12/2020 12:00:00 AM EDT [facility] ([facility]) OFFICE OUTPATIENT VISIT 25 MINUTES 12/12/2020 12:00:00 AM EDT [facility] ([facility]) Results ID Date Data Source [id number] 01/10/2021 12:00:00 AM EDT [facility] Name Value Range Interpretation Code Description Data Eden rce(s) Supporting Document(s) SARS coronavirus 2 Ag NEGATIVE [facility] This lab was ordered by [facility] and reported by [facility]. ID Date Data Source [id number] 01/03/2021 12:00:00 AM EDT [facility] Name Value Range Interpretation Code Description Data Eden rce(s) Supporting Document(s) SARS coronavirus 2 Ag NEGATIVE [facility] This lab was ordered by [facility] and reported by [facility]. ID Date Data Source [id number] 12/27/2020 12:00:00 AM EDT [facility] Name Value Range Interpretation Code Description Data Eden rce(s) Supporting Document(s) SARS coronavirus 2 Ag NEGATIVE [facility] This lab was ordered by [facility] and reported by [facility]. ID Date Data Source [id number] 12/20/2020 12:00:00 AM EDT [facility] Name Value Range Interpretation Code Description Data Eden rce(s) Supporting Document(s) SARS coronavirus 2 Ag NEGATIVE [facility] This lab was ordered by [facility] and reported by [facility]. ID Date Data Source [id number] 12/08/2020 12:00:00 AM EDT [facility] Name Value Range Interpretation Code Description Data Eden rce(s) Supporting Document(s) SARS coronavirus 2 Ag NEGATIVE [facility] This lab was ordered by [facility] and reported by [facility]. ID Date Data Source [id number] 11/14/2020 12:00:00 AM EDT [facility] Name Value Range Interpretation Code Description Data Eden rce(s) Supporting Document(s) SARS coronavirus 2 Ag NEGATIVE [facility] This lab was ordered by [facility] and reported by [facility]. ID Date Data Source [id number] 10/17/2020 12:00:00 AM EDT [facility] Name Value Range Interpretation Code Description Data Eden rce(s) Supporting Document(s) SARS coronavirus 2 Ag NEGATIVE [facility] This lab was ordered by [facility] and reported by [facility]. ID Date Data Source [id number] 10/13/2020 12:00:00 AM EDT [facility] Name Value Range Interpretation Code Description Data Eden rce(s) Supporting Document(s) SARS-CoV2 Rapid Antigen Negative [facility] This lab was ordered by [facility] and reported by [facility]. ID Date Data Source [id number] 09/16/2020 12:00:00 AM EDT [facility] Name Value Range Interpretation Code Description Data Eden rce(s) Supporting Document(s) SARS-CoV2 Rapid Antigen Negative [facility] This lab was ordered by [facility] and reported by [facility]. ID Date Data Source [id number] 09/12/2020 02:15:00 PM EDT [facility] Name Value Range Interpretation Code Description Data Eden rce(s) Supporting Document(s) SARS-CoV-2 (COVID-19) RNA [Presence] in Respiratory specimen by NATASHA with probe detection Not Detected [facility] This lab was ordered by [facility] and reported by [employer]. ID Date Data Source [id number] 09/08/2020 12:00:00 AM EDT [facility] Name Value Range Interpretation Code Description Data Eden rce(s) Supporting Document(s) SARS coronavirus 2 Ag NEGATIVE [facility] This lab was ordered by [facility] and reported by [facility]. ID Date Data Source [id number] 09/02/2020 12:00:00 AM EDT [facility] Name Value Range Interpretation Code Description Data Eden rce(s) Supporting Document(s) SARS coronavirus 2 Ag NEGATIVE [facility] This lab was ordered by [facility] and reported by [facility]. ID Date Data Source [id number] 08/30/2020 07:21:00 AM EDT [facility] Name Value Range Interpretation Code Description Data Eden rce(s) Supporting Document(s) SARS-CoV-2 (COVID-19) RNA [Presence] in Respiratory specimen by NATASHA with probe detection Not Detected [facility] This lab was ordered by [facility] and reported by [employer] ID Date Data Source [id number] 08/25/2020 12:00:00 AM EDT [facility] Name Value Range Interpretation Code Description Data Eden rce(s) Supporting Document(s) SARS coronavirus 2 Ag NEGATIVE [facility] This lab was ordered by [facility] and reported by [facility]. ID Date Data Source [id number] 08/15/2020 06:25:00 AM EDT [facility] Name Value Range Interpretation Code Description Data Eden rce(s) Supporting Document(s) SARS-CoV-2 (COVID-19) RNA [Presence] in Respiratory specimen by NATASHA with probe detection Not Detected [facility] This lab was ordered by [facility] and reported by [employer] ID Date Data Source [id number] 08/11/2020 12:00:00 AM EDT [facility] Name Value Range Interpretation Code Description Data Eden rce(s) Supporting Document(s) SARS coronavirus 2 Ag NEGATIVE [facility] This lab was ordered by [facility] and reported by [facility] [employer] [facility]. ID Date Data Source [id number] 08/04/2020 12:00:00 AM EDT [facility] Name Value Range Interpretation Code Description Data Eden rce(s) Supporting Document(s) SARS coronavirus 2 Ag NEGATIVE [facility] This lab was ordered by [facility] and reported by [facility] [employer] [facility]. ID Date Data Source [id number] 08/01/2020 06:40:00 AM EDT [facility] Name Value Range Interpretation Code Description Data Eden rce(s) Supporting Document(s) SARS-CoV-2 (COVID-19) RNA [Presence] in Respiratory specimen by NATASHA with probe detection Not Detected [facility] This lab was ordered by [facility] and reported by [employer] ID Date Data Source [id number] 07/28/2020 12:00:00 AM EDT [facility] Name Value Range Interpretation Code Description Data Eden rce(s) Supporting Document(s) SARS coronavirus 2 Ag NEGATIVE [facility] This lab was ordered by [facility] and reported by [facility]. ID Date Data Source [id number] 07/25/2020 01:09:00 PM EDT [facility] Name Value Range Interpretation Code Description Data Eden rce(s) Supporting Document(s) SARS-CoV-2 (COVID-19) RNA [Presence] in Respiratory specimen by NATASHA with probe detection Not Detected [facility] This lab was ordered by [facility] and reported by [employer]. ID Date Data Source [id number] 07/11/2020 10:21:00 AM EDT [facility] Name Value Range Interpretation Code Description Data Eden rce(s) Supporting Document(s) SARS-CoV-2 (COVID-19) RNA [Presence] in Respiratory specimen by NATASHA with probe detection Not Detected [facility] This lab was ordered by [facility] and reported by [employer]. ID Date Data Source [id number] 07/04/2020 06:44:00 AM EDT [facility] Name Value Range Interpretation Code Description Data Eden rce(s) Supporting Document(s) SARS-CoV-2 (COVID-19) RNA [Presence] in Respiratory specimen by NATASHA with probe detection Not Detected [facility] This lab was ordered by [facility] and reported by [employer]. ID Date Data Source [id number] 06/30/2020 12:00:00 AM EDT [facility] Name Value Range Interpretation Code Description Data Eden rce(s) Supporting Document(s) SARS coronavirus 2 Ag NEGATIVE [facility] This lab was ordered by [facility] and reported by [facility]. ID Date Data Source [id number] 06/27/2020 07:00:00 AM EDT [facility] Name Value Range Interpretation Code Description Data Eden rce(s) Supporting Document(s) SARS coronavirus 2 RNA Not Detected [facility] This lab was ordered by [facility] and reported by [facility]. ID Date Data Source [id number] 06/23/2020 12:00:00 AM EDT [facility] Name Value Range Interpretation Code Description Data Eden rce(s) Supporting Document(s) SARS coronavirus 2 Ag NEGATIVE [facility] This lab was ordered by [facility] and reported by [facility]. ID Date Data Source [id number] 06/20/2020 02:27:00 PM EDT [facility] Name Value Range Interpretation Code Description Data Eden rce(s) Supporting Document(s) SARS coronavirus 2 RNA Not Detected [facility] This lab was ordered by [facility] and reported by [facility]. ID Date Data Source [id number] 06/16/2020 12:00:00 AM EDT eCW1 (Formerly [facility]) Name Value Range Interpretation Code Description Data Eden rce(s) Supporting Document(s) 66.2 30.0-100.0 TOTAL 25(OH) VITAMIN D eC W1 ([facility]) ID Date Data Source TSH 06/16/2020 12:00:00 AM EDT eCW1 ([facility]) Name Value Range Interpretation Code Description Data Eden rce(s) Supporting Document(s) 5.910 0.358-3.740 THYROID STIMULATING HORM ONE eCW1 ([facility]) ID Date Data Source LIPID PANEL (CARDIAC RISK) 06/16/2020 12:00:00 AM EDT eCW1 ( [facility]) Name Value Range Interpretation Code Description Data Eden rce(s) Supporting Document(s) Triglyceride [Mass/volume] in Serum or Plasma by calculation 238 <150 TRIGLYCERIDES LEVEL eCW1 ([facility]) Cholesterol [Moles/volume] in Serum or Plasma 203 <200 CHOLESTEROL LEVEL eCW1 ([facility]) Cholesterol in HDL [Moles/volume] in Serum or Plasma 46 >40 HDL CHOLESTEROL eCW1 ([facility]) Cholesterol in LDL [Mass/volume] in Serum or Plasma by calculation 109 <100 LDL CHOLESTEROL eCW1 ([facility]) 157 NON-HDL-C eCW1 (Counts include 234 beds at the [facility]) 4.413 <5 CHOLESTEROL RISK RATIO eCW1 ([facility]) ID Date Data Source Comprehensive Metabolic Profile (CMP) 06/16/2020 12:00:00 AM EDT eCW1 ([facility]) Name Value Range Interpretation Code Description Data Eden rce(s) Supporting Document(s) 108 70-100 GLUCOSE, FASTING eCW1 ([facility]) 0.79 0.55-1.30 CREATININE FOR GFR eCW1 ([facility]) 140 136-145 SODIUM LEVEL eCW1 ([facility]) > 60.0 >51 GLOMERULAR FILTRATION RATE eCW 1 ([facility]) 21 7-18 BLOOD UREA NITROGEN eCW1 ([facility]) 32 21-32 CARBON DIOXIDE LEVEL eCW1 ([facility]) 103 98-107 CHLORIDE LEVEL eCW1 ([facility]) 3.8 3.5-5.1 POTASSIUM SERUM eCW1 ([facility]ly [facility]) 9.5 8.5-10.1 CALCIUM LEVEL eCW1 ([facility]) 32 12-78 ALT/SGPT eCW1 (Counts include 234 beds at the [facility]) 20 7-37 AST/SGOT eCW1 (Counts include 234 beds at the [facility]) 0.3 0.2-1.0 BILIRUBIN,TOTAL eCW1 ([facility]) 146 45-117 ALKALINE PHOSPHATASE eCW1 ([facility]) 1.0 1.2-2.2 ALBUMIN/GLOBULIN RATIO eCW1 ([facility]) 3.8 3.2-5.2 ALBUMIN eCW1 (Counts include 234 beds at the [facility]) 7.6 6.4-8.2 TOTAL PROTEIN eCW1 ([facility]) ID Date Data Source [id number] 06/16/2020 12:00:00 AM EDT [facility] Name Value Range Interpretation Code Description Data Eden rce(s) Supporting Document(s) [facility] 2 [facility] This [facility] was [facility] by [facility] and reported by [facility]. ID Date Data Source [id number] 06/13/2020 08:00:00 AM EDT [facility] Name Value Range Interpretation Code Description Data Eden rce(s) Supporting Document(s) SARS coronavirus 2 RNA Not Detected [facility] [place] This lab was ordered by [facility] and reported by [facility]. ID Date Data Source [id number] 06/09/2020 12:00:00 AM EST [facility] Name Value Range Interpretation Code Description Data Eden rce(s) Supporting Document(s) SARS coronavirus 2 Ag NEGATIVE [facility] This lab was ordered by [facility] and reported by [facility]. ID Date Data Source [id number] 06/06/2020 03:00:00 PM EST [facility] Name Value Range Interpretation Code Description Data Eden rce(s) Supporting Document(s) SARS coronavirus 2 RNA Not Detected [facility] This lab was ordered by [facility] and reported by [facility]. ID Date Data Source [id number] 06/02/2020 12:00:00 AM EST [facility] Name Value Range Interpretation Code Description Data Eden rce(s) Supporting Document(s) SARS coronavirus 2 Ag NEGATIVE [facility] This lab was ordered by [facility] and reported by [facility]. ID Date Data Source [id number] 05/30/2020 10:00:00 AM EST [facility] Name Value Range Interpretation Code Description Data Eden rce(s) Supporting Document(s) SARS coronavirus 2 RNA Not Detected [facility] This lab was ordered by [facility] and reported by [facility]. ID Date Data Source [id number] 05/26/2020 12:00:00 AM EST [facility] Name Value Range Interpretation Code Description Data Eden rce(s) Supporting Document(s) SARS coronavirus 2 Ag NEGATIVE [facility] This lab was ordered by [facility] and reported by [facility]. ID Date Data Source [id number] 05/23/2020 11:00:00 AM EST [facility] Name Value Range Interpretation Code Description Data Eden rce(s) Supporting Document(s) SARS coronavirus 2 RNA Not Detected [facility] This lab was ordered by [facility] and reported by [facility]. ID Date Data Source [id number] 05/19/2020 12:00:00 AM EST [facility] Name Value Range Interpretation Code Description Data Eden rce(s) Supporting Document(s) SARS coronavirus 2 Ag NEGATIVE [facility] This lab was ordered by [facility] and reported by [facility]. ID Date Data Source [id number] 05/16/2020 10:00:00 AM EST [facility] Name Value Range Interpretation Code Description Data Eden rce(s) Supporting Document(s) SARS coronavirus 2 RNA Not Detected [facility] This lab was ordered by [facility] and reported by [facility]. ID Date Data Source [id number] 05/12/2020 12:00:00 AM EST [facility] Name Value Range Interpretation Code Description Data Eden rce(s) Supporting Document(s) SARS coronavirus 2 Ag NEGATIVE [facility] This lab was ordered by [facility] and reported by [facility]. ID Date Data Source [id number] 05/09/2020 10:30:00 AM EST [facility] Name Value Range Interpretation Code Description Data Eden rce(s) Supporting Document(s) SARS coronavirus 2 RNA Not Detected [facility] This lab was ordered by [facility] and reported by [facility]. ID Date Data Source [id number] 05/05/2020 12:00:00 AM EST [facility] Name Value Range Interpretation Code Description Data Eden rce(s) Supporting Document(s) SARS coronavirus 2 Ag [facility] This lab was ordered by [facility] and reported by [facility]. ID Date Data Source [id number] 05/02/2020 09:00:00 AM EST [facility] Name Value Range Interpretation Code Description Data Eden rce(s) Supporting Document(s) SARS coronavirus 2 RNA Not Detected [facility] This lab was ordered by [facility] and reported by [facility]. ID Date Data Source [id number] 04/28/2020 12:00:00 AM EST [facility] Name Value Range Interpretation Code Description Data Eden rce(s) Supporting Document(s) SARS coronavirus 2 Ag NEGATIVE [facility] This lab was ordered by [facility] and reported by [facility]. ID Date Data Source [id number] 04/25/2020 09:01:00 AM EST [facility] Name Value Range Interpretation Code Description Data Eden rce(s) Supporting Document(s) SARS coronavirus 2 RNA Not Detected [facility] This lab was ordered by [facility] and reported by [facility]. ID Date Data Source [id number] 04/21/2020 12:00:00 AM EST [facility] Name Value Range Interpretation Code Description Data Eden rce(s) Supporting Document(s) SARS coronavirus 2 Ag Negative [facility] This lab was ordered by [facility] and reported by [facility]. ID Date Data Source [id number] 04/18/2020 11:00:00 AM EST [facility] Name Value Range Interpretation Code Description Data Eden rce(s) Supporting Document(s) SARS coronavirus 2 RNA Not Detected [facility] This lab was ordered by [facility] and reported by [facility]. ID Date Data Source [id number] 04/15/2020 12:00:00 AM EST [facility] Name Value Range Interpretation Code Description Data Eden rce(s) Supporting Document(s) SARS coronavirus 2 Ag Negative [facility] This lab was ordered by [facility] and reported by [facility]. ID Date Data Source [id number] 04/11/2020 08:00:00 AM EST [facility] Name Value Range Interpretation Code Description Data Eden rce(s) Supporting Document(s) SARS coronavirus 2 RNA Not Detected [facility] This lab was ordered by [facility] and reported by [facility]. ID Date Data Source [id number] 04/04/2020 09:00:00 AM EST [facility] Name Value Range Interpretation Code Description Data Eden rce(s) Supporting Document(s) SARS coronavirus 2 RNA Not Detected [facility] This lab was ordered by [facility] and reported by [facility]. ID Date Data Source [id number] 03/28/2020 07:00:00 AM EST [facility] Name Value Range Interpretation Code Description Data Eden rce(s) Supporting Document(s) SARS coronavirus 2 RNA [facility] This lab was ordered by [facility] and reported by [facility]. ID Date Data Source [id number] 03/21/2020 09:30:00 AM EST [facility] Name Value Range Interpretation Code Description Data Eden rce(s) Supporting Document(s) SARS coronavirus 2 RNA [facility] This lab was ordered by [facility] and reported by [facility]. ID Date Data Source [id number] 03/14/2020 08:00:00 AM EST [facility] Name Value Range Interpretation Code Description Data Eden rce(s) Supporting Document(s) SARS coronavirus 2 RNA [facility] This lab was ordered by [facility] and reported by [facility]. ID Date Data Source [id number] 03/07/2020 07:57:00 AM EST [facility] Name Value Range Interpretation Code Description Data Eden rce(s) Supporting Document(s) SARS coronavirus 2 RNA [facility] This lab was ordered by [facility] and reported by [facility]. ID Date Data Source [id number] 02/29/2020 07:27:00 AM EST [facility] Name Value Range Interpretation Code Description Data Eden rce(s) Supporting Document(s) SARS coronavirus 2 RNA [facility] This lab was ordered by [facility] and reported by [facility]. ID Date Data Source [id number] 02/22/2020 12:00:00 PM EST [facility] Name Value Range Interpretation Code Description Data Eden rce(s) Supporting Document(s) SARS coronavirus 2 RNA [facility] This lab was ordered by [facility] and reported by [facility]. ID Date Data Source [id number] 02/15/2020 05:30:00 AM EST [facility] Name Value Range Interpretation Code Description Data Eden rce(s) Supporting Document(s) SARS coronavirus 2 RNA [facility] This lab was ordered by [facility] and reported by [facility]. ID Date Data Source [id number] 02/08/2020 03:00:00 PM EST [facility] Name Value Range Interpretation Code Description Data Eden rce(s) Supporting Document(s) SARS coronavirus 2 RNA [facility] This lab was ordered by [facility] and reported by [facility]. ID Date Data Source [id number] 02/01/2020 05:30:00 AM EST [facility] Name Value Range Interpretation Code Description Data Eden rce(s) Supporting Document(s) SARS coronavirus 2 RNA [facility] This lab was ordered by [facility] and reported by [facility]. ID Date Data Source [id number] 01/25/2020 08:00:00 AM EDT [facility] Name Value Range Interpretation Code Description Data Eden rce(s) Supporting Document(s) SARS coronavirus 2 RNA [facility] This lab was ordered by [facility] and reported by [facility]. ID Date Data Source [id number] 01/18/2020 06:57:00 AM EDT [facility] Name Value Range Interpretation Code Description Data Eden rce(s) Supporting Document(s) SARS coronavirus 2 RNA [facility] This lab was ordered by [facility] and reported by [facility]. ID Date Data Source [id number] 01/11/2020 08:30:00 AM EDT [facility] Name Value Range Interpretation Code Description Data Eden rce(s) Supporting Document(s) SARS coronavirus 2 RNA [facility] This lab was ordered by [facility] and reported by [facility]. ID Date Data Source [id number] 01/07/2020 09:00:00 AM EDT [facility] Name Value Range Interpretation Code Description Data Eden rce(s) Supporting Document(s) SARS coronavirus 2 RNA [facility] This lab was ordered by [facility] and reported by [facility]. ID Date Data Source [id number] 12/28/2019 09:00:00 AM EDT [facility] Name Value Range Interpretation Code Description Data Eden rce(s) Supporting Document(s) SARS coronavirus 2 RNA [facility] This lab was ordered by [facility] and reported by [facility]. ID Date Data Source [id number] 12/21/2019 07:50:00 AM EDT [facility] Name Value Range Interpretation Code Description Data Eden rce(s) Supporting Document(s) SARS coronavirus 2 RNA [facility] This lab was ordered by [facility] and reported by [facility]. ID Date Data Source [id number] 12/10/2019 10:23:00 AM EDT [facility] Name Value Range Interpretation Code Description Data Eden rce(s) Supporting Document(s) SARS coronavirus 2 RNA [facility] This lab was ordered by [facility] and reported by [facility]. ID Date Data Source [id number] 11/30/2019 11:43:00 AM EDT [facility] Name Value Range Interpretation Code Description Data Eden rce(s) Supporting Document(s) SARS coronavirus 2 RNA [facility] This lab was ordered by [facility] and reported by [facility]. Procedure Social History Code Duration Value Status Description Data Source(s ) Smoking 10/27/2020 12:00:00 AM EDT Never Smoker completed Never S moker eCW1 ([facility]) Smoking 09/08/2020 12:00:00 AM EDT Never Smoker completed Never S moker eCW1 ([facility]) Smoking 09/08/2020 12:00:00 AM EDT Never Smoker completed Never S moker eCW1 ([facility]) Smoking 06/16/2020 12:00:00 AM EDT Never Smoker completed Never S moker eCW1 ([facility]) Smoking 06/16/2020 12:00:00 AM EDT Never Smoker completed Never S moker eCW1 ([facility]) Smoking 06/16/2020 12:00:00 AM EDT Never Smoker completed Never S moker eCW1 ([facility]) Smoking 06/16/2020 12:00:00 AM EDT Never Smoker completed Never S moker eCW1 ([facility]) Smoking 06/16/2020 12:00:00 AM EDT Never Smoker completed Never S moker eCW1 ([facility]) Smoking 06/16/2020 12:00:00 AM EDT Never Smoker completed Never S moker eCW1 ([facility]) Smoking 06/16/2020 12:00:00 AM EDT Never Smoker completed Never S moker eCW1 ([facility]) Smoking 04/15/2020 12:00:00 AM EST Patient has never smoked co mpleted Patient has never smoked MEDENT ([facility], [facility]) Smoking 04/12/2020 12:00:00 AM EST Never Smoker completed Never S moker eCW1 ([facility]) Smoking 04/12/2020 12:00:00 AM EST Never Smoker completed Never S moker eCW1 ([facility]) Smoking 04/12/2020 12:00:00 AM EST Never Smoker completed Never S moker eCW1 ([facility]) Smoking 02/22/2020 12:00:00 AM EST Never Smoker completed Never S moker eCW1 ([facility]) Smoking 01/26/2020 12:00:00 AM EDT Never Smoker completed Never S moker eCW1 ([facility]) Vital Signs ID Date Data Source UNK Name Value Range Interpretation Code Description Data Source(s) Body weight 308.8 [lb_av] 308.8 [lb_av] eCW1 ([facility]) Body height 64.5 [in_i] 64.5 [in_i] eCW1 ([facility]) Body mass index (BMI) [Ratio] 52.18 kg/m2 52.18 kg/m2 eCW1 ([facility]) Heart rate 90 /min 90 /min eCW1 ([facility]) Respiratory rate 18 /min 18 /min eCW1 ([facility]) Body temperature 98.5 [degF] 98.5 [degF] eCW1 ( [facility]) Systolic blood pressure 122 mm[Hg] 122 mm[Hg] e CW1 ([facility]) Diastolic blood pressure 80 mm[Hg] 80 mm[Hg] eCW1 ([facility]) Body weight 313.8 [lb_av] 313.8 [lb_av] eCW1 ([facility]) Body height 64.5 [in_i] 64.5 [in_i] eCW1 ([facility]) Body mass index (BMI) [Ratio] 53.03 kg/m2 53.03 kg/m2 eCW1 ([facility]) Heart rate 116 /min 116 /min eCW1 ([facility]) Respiratory rate 20 /min 20 /min eCW1 ([facility]) Body temperature 97.6 [degF] 97.6 [degF] eCW1 ( [facility]) Systolic blood pressure 134 mm[Hg] 134 mm[Hg] e CW1 ([facility]) Diastolic blood pressure 86 mm[Hg] 86 mm[Hg] eCW1 ([facility]) Body weight 312.2 [lb_av] 312.2 [lb_av] eCW1 ([facility]) Body height 64.5 [in_i] 64.5 [in_i] eCW1 ([facility]) Body mass index (BMI) [Ratio] 52.76 kg/m2 52.76 kg/m2 eCW1 ([facility]) Heart rate 110 /min 110 /min eCW1 ([facility]) Respiratory rate 20 /min 20 /min eCW1 ([facility]) Body temperature 98.3 [degF] 98.3 [degF] eCW1 ( [facility]) Systolic blood pressure 120 mm[Hg] 120 mm[Hg] e CW1 ([facility]) Diastolic blood pressure 84 mm[Hg] 84 mm[Hg] eCW1 ([facility]) Systolic blood pressure 134 mm[Hg] 134 mm[Hg] M EDENT ([facility], [facility]) Diastolic blood pressure 92 mm[Hg] 92 mm[Hg] MEDENT ([facility], [facility]) Respiratory rate 18 /min 18 /min MED[facility] ( [facility], [facility]) Oxygen saturation in Arterial blood by Pulse oximetry 97 % 97 % MEDENT ([facility], [facility]) Heart rate 78 /min 78 /min MEDENT ([facility], [facility]) Body weight 318.00 [lb_av] 318.00 [lb_av] MEDEN T ([facility], [facility]) Body temperature 99.1 [degF] 99.1 [degF] MEDENT ([facility], [facility]) Body weight 312 [lb_av] 312 [lb_av] eCW1 ([facility]) Body height 64.5 [in_i] 64.5 [in_i] eCW1 ([facility]) Body mass index (BMI) [Ratio] 52.72 kg/m2 52.72 kg/m2 eCW1 ([facility]) Heart rate 88 /min 88 /min eCW1 ([facility]) Respiratory rate 20 /min 20 /min eCW1 ([facility]) Body temperature 97.4 [degF] 97.4 [degF] eCW1 ( [facility]) Systolic blood pressure 140 mm[Hg] 140 mm[Hg] e CW1 ([facility]) Diastolic blood pressure 90 mm[Hg] 90 mm[Hg] eCW1 ([facility]) Body weight 309.12 [lb_av] 309.12 [lb_av] MEDEN T ([facility]) Body temperature 96.7 [degF] 96.7 [degF] MEDENT ([facility]) Body height 64.5 [in_i] 64.5 [in_i] MEDENT ([facility]) 5'4.50" Body mass index (BMI) [Ratio] 52.2 kg/m2 52.2 k g/m2 MED[facility] ([facility] ) Oxygen saturation in Arterial blood by Pulse oximetry 97 % 97 % MEDENT ([facility], [facility]) Body temperature 98.5 [degF] 98.5 [degF] MEDENT ([facility], [facility]) Body weight 310.00 [lb_av] 310.00 [lb_av] MEDEN T ([facility], [facility]) Body height 65 [in_i] 65 [in_i] MEDENT ([facility], [facility]) 5'5" Body mass index (BMI) [Ratio] 51.6 kg/m2 51.6 k g/m2 MEDENT ([facility], [facility]) Heart rate 80 /min 80 /min MEDENT ([facility], [facility]) Diastolic blood pressure 90 mm[Hg] 90 mm[Hg] MEDENT ([facility], [facility]) Respiratory rate 20 /min 20 /min MED[facility] ( [facility], [facility]) Systolic blood pressure 147 mm[Hg] 147 mm[Hg] M EDENT ([facility], [facility]) Patient Treatment Plan of Care Planned Activity Planned Date Details Description Data Source (s) montelukast 10 MG Oral Tablet 02/22/2020 12:00:00 AM EST eCW1 ([facility]) montelukast 10 MG Oral Tablet 02/22/2020 12:00:00 AM EST eCW1 ([facility]) montelukast 10 MG Oral Tablet 02/22/2020 12:00:00 AM EST eCW1 ([facility]) montelukast 10 MG Oral Tablet 02/22/2020 12:00:00 AM EST eCW1 ([facility]) montelukast 10 MG Oral Tablet 02/22/2020 12:00:00 AM EST eCW1 ([facility]) montelukast 10 MG Oral Tablet 02/22/2020 12:00:00 AM EST eCW1 ([facility]) montelukast 10 MG Oral Tablet 02/22/2020 12:00:00 AM EST eCW1 ([facility]) Hydrochlorothiazide 12.5 MG Oral Tablet 01/26/2020 12:00:00 AM EDT eCW1 ([facility])
--- OUTSIDE RECORDS SUMMARY | 2021-01-16 07:37 | CCD ---
Author Author [facility] Organization [facility] Address Unknown Phone Unavailable Care Team Providers Care Linecasting Machine Keyboard Operator Name Role Phone Tatum Santana Unavailable PROBLEMS Type Condition ICD9-CM Code ZIP09-LH Code Onset Dates Condition S tatus W/U Status Risk SNOMED Code Notes Problem Irritable bowel syndrome with diarrhea K58.0 A ctive confirmed 936368822 Problem Restless leg syndrome G25.81 Active confirmed 17766673 Problem Acquired hypothyroidism E03.9 Active confirmed 783702605 Problem Glaucoma of both eyes, unspecified glaucoma type H 40.9 Active confirmed 82652807 Problem Environmental allergies Z91.09 Active confirmed 279940622 Problem Mixed hyperlipidemia E78.2 Active confirmed 981764228 Problem BMI 50.0-59.9, adult Z68.43 Active confirmed 728551012 Problem Obesity, morbid, BMI 50 or higher E66.01 Active confirmed 774356623 Problem Essential hypertension I10 Active confirmed 32314563 Problem Vitamin D deficiency E55.9 Active confirmed 01320973 Problem Lumbago with sciatica, left side M54.42 Active confirmed 753375378 Problem Other chronic pain G89.29 Active confirmed 8 3853266 ALLERGIES Allergen (clinical drug ingredient) Drug/Non Drug Allergy do cumented on EMR Reaction Allergy Type Onset Date Status Sulfa (for allergy use only) Hives Drug Allergy Active Penicillin (For Allergies Use Only) SOB Drug Allerg y Active tape rash Non Drug Allergy Active cold medicine "Higher than a kite" pt states Non Drug Philippe rgy Active morphine Morphine Sulfate(NDC Code:[address]-55) "Higher than a kite" pt states Drug Allergy Active Neosporin(NDC Code:35000-31391) rash/ blisters Drug Allerg y Active Eggs/Apples/Oats([facility] [place] Code:37565-98269) Unknown Drug All ergy Active ENCOUNTERS from 1960 to 2020-10-24 Encounter Location Date Provider Diagnosis [facility] Francois [phone] [place] [address] Sep, Tatum Lazarusage Vitamin D deficiency E55.9 IMMUNIZATIONS Vaccine Route Administration Date Status Influenza 6mo & up Fluzone Unknown Jan 26, 2020 Other s SOCIAL HISTORY Tobacco Use: Social History Observation Description Date Details (start date - stop date) Never Smoker Sex Assigned At : Social History Observation Description Sex Assigned At Unknown Education: Question Answer Notes Level of Education: [facility] Audit Question Answer Notes Total Score: 0 Interpretation: Alcohol Education Language: Question Answer Notes Languages spoken: Citizen Of [place] Temple: Question Answer Notes Temple [employer] Sexual Hx: Question Answer Notes Had sex [...] REASON FOR REFERRAL No Information VITAL SIGNS No information MEDICATIONS Medication SIG (Take, Route, Frequency, Duration) Notes Start Da te End Date Status Atorvastatin Calcium 80 mg 1 tab(s) p.o. Once a day Active Drisdol 1.25 MG (59629 UT) 1 capsule Orally weekly for 90 days Active Multivitamins otc 1 tablet Orally once a day Active Bacid - 3 tabs Orally Daily Activ e Paxil 20 mg 1 tablet in the morning Orally Once a day for 90 day(s) Jan, Active Montelukast Sodium 10 MG 1 tablet Orally Once a day for 90 day(s ) Jan, Active Lumigan 0.03 % 1 drop into affected eye every evening Ophthalmic On ce a day Active Hydrochlorothiazide 12.5 MG 1 tablet in the morning Or ally Once a day for 90 days Active PriLOSEC OTC 20 MG 1 tablet Orally Once a day for 90 day(s) Active Avapro 75 MG 1 tablet Orally Once a day for 90 days Active Levothyroxine Sodium 175 MCG 1 tablet in the morning o n an empty stomach Orally Once a day Active Refresh Dry Eye Therapy A ctive Myah Allergy 180 MG 1 tablet Orally Once a day Active PROCEDURES No Information RESULTS No Results REASON FOR VISIT salomón MEDICAL (GENERAL) HISTORY Type Description Date Medical History Hypothyroidism Medical History hypertenison Medical History glaucoma both eyes Medical History seasonal allergies Medical History hyperlipidemia Medical History acid reflux Medical History TMJ Medical History Arthritis Medical History perimenopause Medical History atrophic vaginitis Medical History HRT for 1 yr only after hyster (2002- 4) Medical History morbid obesity (BMI 49.6) Medical [...] Treatment Notes Treatm ent Clinical Notes Sep, Vitamin D deficiency (ICD-10 - E55.9) PLAN OF TREATMENT Medication Medication Name Sig Start Date Stop Date Hydrochlorothiazide 12.5 MG 1 tablet in the morning Or ally Once a day for 90 days Drisdol 1.25 MG (16685 UT) 1 capsule Orally weekly for 90 days Atorvastatin Calcium 80 mg 1 tab(s) p.o. Once a day Avapro 75 MG 1 tablet Orally Once a day for 90 days Levothyroxine Sodium 175 MCG 1 tablet in the morning o n an empty stomach Orally Once a day Lumigan 0.03 % 1 drop into affected eye every evening Ophthalmi c Once a day Next Appt Details Provider Name:Tatum Santana, 08:30:00 AM, [address] [place] [address], , [place], [address], Provider Name:Tatum Santana, 03:00:00 PM, [address], , [place], [address], Insurance Providers Payer Name Payer Address Payer Phone Insured Name Patient Relati onship to Insured Coverage Start Date Coverage End Date [facility] [id number] [facility] [id number] KADY CARLSON self
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
[2021-01-16 09:50] VITALS: BP 118/76
--- OUTSIDE RECORDS SUMMARY | 2021-01-16 09:50 | CCD ---
Author Author [facility] Organization [facility] Address Unknown Phone Unavailable Care Team Providers Care Design Specialist Name Role Phone KERRIE, Mile HARO Unavailable [...] Unavailable Crow, Mamat Priscila PA Unavailable Unavailable Crow, Mamta Priscila PA Unavailable Unavailable Crow, Mamta Priscila PA Unavailable Unavailable Crow, Mamta Priscila PA Unavailable Unavailable Crow, Mamta Priscila PA Unavailable Unavailable Crow, Mamta Priscila PA Unavailable Unavailable Crow, Mamta Priscila PA Unavailable Unavailable Crow, Mamta Priscila PA Unavailable Unavailable Cortze, M Barratt PA Unavailable Unavailable Cortez, M [...] is protected by Article 27-F of the [facility] Public Health law. If you continue you may have access to information: Regarding HIV / AIDS; Provided by facilities licensed or operated by the [facility] Office of Mental Health; or Provided by the [facility] Office for People With Developmental Disabilities. If such information is present, then the following [facility] mandated warning applies: This information has [...] law may result in a fine or [place] health [place] sentence or both. A general authorization for the release of medical or other information is NOT sufficient authorization for further disc losure. Family History Family Member Name Family Member Gender Family Member Status Date o f Status Description Data Source(s) Unknown Female Problem MEDENT ([facility]) Unknown Female Problem [facility] ([facility]) Unknown Female Problem [facility]ENT ([facility]) Unknown Female Problem [facility] ([facility]) Unknown Female Problem MEDENT ([facility]) Unknown Unknown Problem [facility] ([facility] Encounters Encounter Providers Location Date Indications Data Source(s ) OFFICE OUTPATIENT VISIT 15 MINUTES Attender: James HARO Physical Therapy 12/12/2020 03:45:00 PM EDT MED[facility] ([facility]) [place] [address] [facility] [address] 10/27/2020 12:00:00 AM EDT eCW1 ([facility]) [place] [address] [address] 10/24/2020 12:00:00 AM EDT eCW1 ([facility]) [place] [address] [facility] [address] 09/08/2020 12:00:00 AM EDT eCW1 ([facility]) Unknown [address] [facility] [address] 08/30/2020 12:00:00 AM EDT eCW1 ([facility]) [place] [address] [facility] [address] 08/25/2020 12:00:00 AM EDT eCW1 ([facility]) [place] [address] [facility] [address] 08/19/2020 12:00:00 AM EDT eCW1 ([facility]) [place] [address] [facility] [address] 08/16/2020 12:00:00 AM EDT eCW1 ([facility]) [place] [address] [facility] [address] 07/22/2020 12:00:00 AM EDT eCW1 ([facility]) [place] [address] [address] 07/07/2020 12:00:00 AM EDT [facility] [place] [address] [facility] [address] 06/16/2020 12:00:00 AM EDT [facility]CW1 [facility] [place] [address] [facility] [address] 05/24/2020 12:00:00 AM EST [facility]CW1 [facility] [place] [address] [facility] [address] 05/17/2020 12:00:00 AM EST [facility]CW1 [facility]) Outpatient Attender: Priscila lyn 04/15/2020 01:30:00 PM EST [facility] ([facility]) [place] [address] [facility] [address] 04/12/2020 12:00:00 AM EST [facility]CW1 [facility] [place] [address] [facility] [address] 04/05/2020 12:00:00 AM EST [facility]CW1 [facility]) Outpatient Attender: JASMIN HARO Physical Therapy 05/2019 08:30:00 AM EST MEDENT ([facility]) Outpatient [address] [facility] [place] [address] 01/26/2020 12:00:00 AM EDT eCW1 [facility]) OFFICE OUTPATIENT NEW 30 MINUTES Attender: JASMIN HARO Phys ical Therapy 01/01/2020 09:30:00 AM EDT MEDENT ([facility]) Outpatient Attender: JERILYN lyn 11/25/2019 02:00:00 PM EDT MEDENT ([facility]) Immunizations Vaccine Date Status Description Data Source(s) COVID-19 VACCINE Mila 12/16/2020 12:00:00 AM EDT completed [facility]IS Vaccine Series Complete: YESThis Data wa s Submitted to [facility] Via [employer]. New in 2011. IIV4 01/26/2020 12:59:00 PM EDT completed eCW1 ([facility]) New in 2011. IIV4 01/26/2020 12:59:00 PM EDT completed eCW1 ([facility]) New in 2011. IIV4 01/26/2020 12:59:00 PM EDT completed eCW1 ([facility]) New in 2011. IIV4 01/26/2020 12:59:00 PM EDT completed eCW1 ([facility]) New in 2011. IIV4 01/26/2020 12:59:00 PM EDT completed eCW1 ([facility]) New in 2011. IIV4 01/26/2020 12:59:00 PM EDT completed eCW1 ([facility]) New in 2011. IIV4 01/26/2020 12:59:00 PM EDT completed eCW1 ([facility]) New in 2011. IIV4 01/26/2020 12:59:00 PM EDT completed eCW1 ([facility]) New in 2011. IIV4 01/26/2020 12:59:00 PM EDT completed eCW1 ([facility]) New in 2011. IIV4 01/26/2020 12:59:00 PM EDT completed eCW1 ([facility]) New in 2011. IIV4 01/26/2020 12:59:00 PM EDT completed eCW1 ([facility]) New in 2011. IIV4 01/26/2020 12:59:00 PM EDT completed eCW1 ([facility]) New in 2011. IIV4 01/26/2020 12:59:00 PM EDT completed eCW1 ([facility]) New in 2011. IIV4 01/26/2020 12:59:00 PM EDT completed eCW1 ([facility]) New in 2011. IIV4 01/26/2020 12:59:00 PM EDT completed eCW1 ([facility]) Medications Medication Brand Name Start Date Product Form Dose Route Admi nistrative Instructions Pharmacy Instructions Status Indications Reaction Description Data Source(s) montelukast 10 MG Oral Tablet Montelukast Sodium 10 MG Tobi lukast Sodium 10 MG 02/22/2020 12:00:00 AM EST 1.0 {tablet} active Montelukast Sodium 10 MG eCW1 ([facility]) montelukast 10 MG Oral Tablet Montelukast Sodium 10 MG Tobi lukast Sodium 10 MG 02/22/2020 12:00:00 AM EST 1.0 {tablet} active Montelukast Sodium 10 MG eCW1 ([facility]) montelukast 10 MG Oral Tablet Montelukast Sodium 10 MG Tobi lukast Sodium 10 MG 02/22/2020 12:00:00 AM EST 1.0 {tablet} active Montelukast Sodium 10 MG eCW1 ([facility]) montelukast 10 MG Oral Tablet Montelukast Sodium 10 MG Tobi lukast Sodium 10 MG 02/22/2020 12:00:00 AM EST 1.0 {tablet} active Montelukast Sodium 10 MG eCW1 ([facility]) montelukast 10 MG Oral Tablet Montelukast Sodium 10 MG Tobi lukast Sodium 10 MG 02/22/2020 12:00:00 AM EST 1.0 {tablet} active Montelukast Sodium 10 MG eCW1 ([facility]) montelukast 10 MG Oral Tablet Montelukast Sodium 10 MG Tobi lukast Sodium 10 MG 02/22/2020 12:00:00 AM EST 1.0 {tablet} active Montelukast Sodium 10 MG eCW1 ([facility]) montelukast 10 MG Oral Tablet Montelukast Sodium 10 MG Tobi lukast Sodium 10 MG 02/22/2020 12:00:00 AM EST 1.0 {tablet} active Montelukast Sodium 10 MG eCW1 ([facility]) montelukast 10 MG Oral Tablet Montelukast Sodium 10 MG Tobi lukast Sodium 10 MG 02/22/2020 12:00:00 AM EST 1.0 {tablet} active Montelukast Sodium 10 MG eCW1 ([facility]) montelukast 10 MG Oral Tablet Montelukast Sodium 10 MG Tobi lukast Sodium 10 MG 02/22/2020 12:00:00 AM EST 1.0 {tablet} active Montelukast Sodium 10 MG eCW1 ([facility]) montelukast 10 MG Oral Tablet Montelukast Sodium 10 MG Tobi lukast Sodium 10 MG 02/22/2020 12:00:00 AM EST 1.0 {tablet} active Montelukast Sodium 10 MG eCW1 ([facility]) montelukast 10 MG Oral Tablet Montelukast Sodium 10 MG Tobi lukast Sodium 10 MG 02/22/2020 12:00:00 AM EST 1.0 {tablet} active Montelukast Sodium 10 MG eCW1 ([facility]) montelukast 10 MG Oral Tablet Montelukast Sodium 10 MG Tobi lukast Sodium 10 MG 02/22/2020 12:00:00 AM EST 1.0 {tablet} active Montelukast Sodium 10 MG eCW1 ([facility]) montelukast 10 MG Oral Tablet Montelukast Sodium 10 MG Tobi lukast Sodium 10 MG 02/22/2020 12:00:00 AM EST 1.0 {tablet} active Montelukast Sodium 10 MG eCW1 ([facility]) montelukast 10 MG Oral Tablet Montelukast Sodium 10 MG Tobi lukast Sodium 10 MG 02/22/2020 12:00:00 AM EST 1.0 {tablet} active Montelukast Sodium 10 MG eCW1 ([facility]) Hydrochlorothiazide 12.5 MG Oral Tablet Hydrochlorothiazide 12.5 MG 01/26/2020 12:00:00 AM EDT 1.0 {tablet_in_the_morning} acti ve Hydrochlorothiazide 12.5 MG eCW1 ([facility]) 200 ACTUAT Albuterol 0.09 MG/ACTUAT Metered Dose Inhaler [Pr oAir] Proair HFA 11/25/2019 12:00:00 AM EDT RESPIRATORY completed [facility] ([facility]) Doxycycline Monohydrate 100 MG Oral Tablet Doxycycline Monoh ydrate 11/25/2019 12:00:00 AM EDT ORAL completed MEDENT ([facility]) Insurance Providers Payer name Policy type / Coverage type Policy ID Covered green party ID Covered green party's relationship to ha Policy Ha Plan Information [employer] [place] 306/806 [id number] SP [id number] [place] P[place] 302/307 [id number] SP [id number] BS [place] [employer] [id number] Self EXCELLUS BCBS B [id number] [place] [id number] [employer] [place] 306/806 [id number] SP [id number] [employer] PPO 302/307 [id number] SP [id number] [place] BCBS B [id number] S [place] [id number] BC/[place] [id number] Self [place] PPO 302/307 [id number] SP [id number] [place] PPO 302/307 [id number] SP [id number] [employer] [place] 306/806 [id number] SP [id number] [place] PPO 302/307 [id number] SP [id number] Problems, Conditions, and Diagnoses Code Display Name Description Problem Type Effective Dates Data Source(s) 62098411 Essential hypertension Essential hypertension Problem 12/14/2020 12:00:00 AM EDT MEDENT ([facility] ) Z68.43 [id number] BMI 50.0-59.9, adult Problem 06/16/2020 12:0 0:00 AM EDT eCW1 ([facility]) Z91.09 [id number] Environmental allergies Problem 02/22/2020 1 2:00:00 AM EST eCW1 ([facility]) G89.29 [id number] Other chronic pain Problem 01/26/2020 12:00: 00 AM EDT eCW1 ([facility]) M54.42 [id number] Lumbago with sciatica, left side Problem 01/26/2020 12:00:00 AM EDT eCW1 ([facility]) Surgeries/Procedures Procedure Description Date Indications Data Source(s) X-Ray Spine Lumbosacral Complete Inc Bending Views Min Of 6 12/12/2020 12:00:00 AM EDT MEDENT ([facility]) OFFICE OUTPATIENT VISIT 15 MINUTES 12/12/2020 12:00:00 AM EDT MEDENT ([facility]) OFFICE OUTPATIENT VISIT 25 MINUTES 12/12/2020 12:00:00 AM EDT MEDENT ([facility]) Results ID Date Data Source [id number] 01/10/2021 12:00:00 AM EDT [facility] Name Value Range Interpretation Code Description Data Eden rce(s) Supporting Document(s) SARS coronavirus 2 Ag NEGATIVE [facility] This lab was ordered by [facility] and reported by [facility]. ID Date Data Source [id number] 01/03/2021 12:00:00 AM EDT [facility] Name Value Range Interpretation Code Description Data Eden rce(s) Supporting Document(s) SARS coronavirus 2 Ag NEGATIVE [facility] This lab was ordered by [facility] and reported by [facility]. ID Date Data Source [id number] 12/27/2020 12:00:00 AM EDT [facility] Name Value Range Interpretation Code Description Data Eden rce(s) Supporting Document(s) SARS coronavirus 2 Ag NEGATIVE [facility] This lab was ordered by [facility] and reported by [facility]. ID Date Data Source [id number] 12/20/2020 12:00:00 AM EDT [facility] Name Value Range Interpretation Code Description Data Eden rce(s) Supporting Document(s) SARS coronavirus 2 Ag NEGATIVE [facility] This lab was ordered by [facility] and reported by [facility]. ID Date Data Source [id number] 12/08/2020 12:00:00 AM EDT [facility] Name Value Range Interpretation Code Description Data Eden rce(s) Supporting Document(s) SARS coronavirus 2 Ag NEGATIVE [facility] This lab was ordered by [facility] and reported by [facility]. ID Date Data Source [id number] 11/14/2020 12:00:00 AM EDT [facility] Name Value Range Interpretation Code Description Data Eden rce(s) Supporting Document(s) SARS coronavirus 2 Ag NEGATIVE [facility] This lab was ordered by [facility] and reported by [facility]. ID Date Data Source [id number] 10/17/2020 12:00:00 AM EDT [facility] Name Value Range Interpretation Code Description Data Eden rce(s) Supporting Document(s) SARS coronavirus 2 Ag NEGATIVE [facility] This lab was ordered by [facility] and reported by [facility]. ID Date Data Source [id number] 10/13/2020 12:00:00 AM EDT [facility] Name Value Range Interpretation Code Description Data Eden rce(s) Supporting Document(s) SARS-CoV2 Rapid Antigen Negative [facility] This lab was ordered by [facility] and reported by [facility]. ID Date Data Source [id number] 09/16/2020 12:00:00 AM EDT [facility] Name Value Range Interpretation Code Description Data Eden rce(s) Supporting Document(s) SARS-CoV2 Rapid Antigen Negative [facility] This lab was ordered by [facility] and reported by [facility]. ID Date Data Source [id number] 09/12/2020 02:15:00 PM EDT [facility] Name Value Range Interpretation Code Description Data Eden rce(s) Supporting Document(s) SARS-CoV-2 (COVID-19) RNA [Presence] in Respiratory specimen by NATASHA with probe detection Not Detected [facility] This lab was ordered by [facility] and reported by [employer]. ID Date Data Source [id number] 09/08/2020 12:00:00 AM EDT [facility] Name Value Range Interpretation Code Description Data Eden rce(s) Supporting Document(s) SARS coronavirus 2 Ag NEGATIVE [facility] This lab was ordered by [facility] and reported by [facility]. ID Date Data Source [id number] 09/02/2020 12:00:00 AM EDT [facility] Name Value Range Interpretation Code Description Data Eden rce(s) Supporting Document(s) SARS coronavirus 2 Ag NEGATIVE [facility] This lab was ordered by [facility] and reported by [facility]. ID Date Data Source [id number] 08/30/2020 07:21:00 AM EDT [facility] Name Value Range Interpretation Code Description Data Eden rce(s) Supporting Document(s) SARS-CoV-2 (COVID-19) RNA [Presence] in Respiratory specimen by NATASHA with probe detection Not Detected [facility] This lab was ordered by [facility] and reported by [employer] ID Date Data Source [id number] 08/25/2020 12:00:00 AM EDT [facility] Name Value Range Interpretation Code Description Data Eden rce(s) Supporting Document(s) SARS coronavirus 2 Ag NEGATIVE [facility] This lab was ordered by [facility] and reported by [facility]. ID Date Data Source [id number] 08/15/2020 06:25:00 AM EDT [facility] Name Value Range Interpretation Code Description Data Eedn rce(s) Supporting Document(s) SARS-CoV-2 (COVID-19) RNA [Presence] in Respiratory specimen by NATASHA with probe detection Not Detected [facility] This lab was ordered by [facility] and reported by [employer] ID Date Data Source [id number] 08/11/2020 12:00:00 AM EDT [facility] Name Value Range Interpretation Code Description Data Eden rce(s) Supporting Document(s) SARS coronavirus 2 Ag NEGATIVE [facility] This lab was ordered by [facility] and reported by [facility] [email or web address] [place]. ID Date Data Source [id number] 08/04/2020 12:00:00 AM EDT [facility] Name Value Range Interpretation Code Description Data Eden rce(s) Supporting Document(s) SARS coronavirus 2 Ag NEGATIVE [facility] This lab was ordered by [facility] and reported by [facility] [email or web address] [place]. ID Date Data Source [id number] 08/01/2020 06:40:00 AM EDT [facility] Name Value Range Interpretation Code Description Data Eden rce(s) Supporting Document(s) SARS-CoV-2 (COVID-19) RNA [Presence] in Respiratory specimen by NATASHA with probe detection Not Detected [facility] This lab was ordered by [facility] and reported by [employer] ID Date Data Source [id number] 07/28/2020 12:00:00 AM EDT [facility] Name Value Range Interpretation Code Description Data Eden rce(s) Supporting Document(s) SARS coronavirus 2 Ag NEGATIVE [facility] This lab was ordered by [facility] and reported by [facility]. ID Date Data Source [id number] 07/25/2020 01:09:00 PM EDT [facility] Name Value Range Interpretation Code Description Data Eden rce(s) Supporting Document(s) SARS-CoV-2 (COVID-19) RNA [Presence] in Respiratory specimen by NATASHA with probe detection Not Detected [facility] This lab was ordered by [facility] and reported by [employer]. ID Date Data Source [id number] 07/11/2020 10:21:00 AM EDT [facility] Name Value Range Interpretation Code Description Data Eden rce(s) Supporting Document(s) SARS-CoV-2 (COVID-19) RNA [Presence] in Respiratory specimen by NATASHA with probe detection Not Detected [facility] This lab was ordered by [facility] and reported by [employer]. ID Date Data Source [id number] 07/04/2020 06:44:00 AM EDT [facility] Name Value Range Interpretation Code Description Data Eden rce(s) Supporting Document(s) SARS-CoV-2 (COVID-19) RNA [Presence] in Respiratory specimen by NATASHA with probe detection Not Detected [facility] This lab was ordered by [facility] and reported by [employer]. ID Date Data Source [id number] 06/30/2020 12:00:00 AM EDT [facility] Name Value Range Interpretation Code Description Data Eden rce(s) Supporting Document(s) SARS coronavirus 2 Ag NEGATIVE [facility] This lab was ordered by [facility] and reported by [facility]. ID Date Data Source [id number] 06/27/2020 07:00:00 AM EDT [facility] Name Value Range Interpretation Code Description Data Eden rce(s) Supporting Document(s) SARS coronavirus 2 RNA Not Detected [facility] This lab was ordered by [facility] and reported by [facility]. ID Date Data Source [id number] 06/23/2020 12:00:00 AM EDT [facility] Name Value Range Interpretation Code Description Data Eden rce(s) Supporting Document(s) SARS coronavirus 2 Ag NEGATIVE [facility] This lab was ordered by [facility] and reported by [facility] [place]. ID Date Data Source [id number] 06/20/2020 02:27:00 PM EDT [facility] Name Value Range Interpretation Code Description Data Eden rce(s) Supporting Document(s) SARS coronavirus 2 RNA Not Detected [facility] [place] This lab was ordered by [facility] and reported by [facility]. ID Date Data Source [id number] 06/16/2020 12:00:00 AM EDT eCW1 ([facility]) Name Value Range Interpretation Code Description Data Eden rce(s) Supporting Document(s) 66.2 30.0-100.0 TOTAL 25(OH) VITAMIN D eC W1 ([facility]) ID Date Data Source [id number] 06/16/2020 12:00:00 AM EDT eCW1 ([facility]) Name Value Range Interpretation Code Description Data Eden rce(s) Supporting Document(s) 5.910 0.358-3.740 THYROID STIMULATING HORM ONE eCW1 ([facility]) ID Date Data Source LIPID PANEL (CARDIAC RISK) 06/16/2020 12:00:00 AM EDT eCW1 ( [facility]) Name Value Range Interpretation Code Description Data Eden rce(s) Supporting Document(s) Triglyceride [Mass/volume] in Serum or Plasma by calculation 238 <150 TRIGLYCERIDES LEVEL eCW1 ([facility]) Cholesterol [Moles/volume] in Serum or Plasma 203 <200 CHOLESTEROL LEVEL eCW1 ([facility]) Cholesterol in HDL [Moles/volume] in Serum or Plasma 46 >40 HDL CHOLESTEROL eCW1 ([facility]) Cholesterol in LDL [Mass/volume] in Serum or Plasma by calculation 109 <100 LDL CHOLESTEROL eCW1 ([facility]) 157 NON-HDL-C eCW1 ([facility]) 4.413 <5 CHOLESTEROL RISK RATIO eCW1 ([facility]) ID Date Data Source Comprehensive Metabolic Profile (CMP) 06/16/2020 12:00:00 AM EDT eCW1 ([facility]) Name Value Range Interpretation Code Description Data Eden rce(s) Supporting Document(s) 108 70-100 GLUCOSE, FASTING eCW1 ([facility]) 0.79 0.55-1.30 CREATININE FOR GFR eCW1 ([facility]) 140 136-145 SODIUM LEVEL eCW1 ([facility]) > 60.0 >51 GLOMERULAR FILTRATION RATE eCW 1 ([facility]) 21 7-18 BLOOD UREA NITROGEN eCW1 ([facility]) 32 21-32 CARBON DIOXIDE LEVEL eCW1 ([facility]) 103 98-107 CHLORIDE LEVEL eCW1 ([facility]) 3.8 3.5-5.1 POTASSIUM SERUM eCW1 ([facility]) 9.5 8.5-10.1 CALCIUM LEVEL eCW1 ([facility]) 32 12-78 ALT/SGPT eCW1 ([facility]) 20 7-37 AST/SGOT eCW1 ([facility]) 0.3 0.2-1.0 BILIRUBIN,TOTAL eCW1 ([facility]) 146 45-117 ALKALINE PHOSPHATASE eCW1 ([facility]) 1.0 1.2-2.2 ALBUMIN/GLOBULIN RATIO eCW1 ([facility]) 3.8 3.2-5.2 ALBUMIN eCW1 ([facility]) 7.6 6.4-8.2 TOTAL PROTEIN eCW1 ([facility]) ID Date Data Source [id number] 06/16/2020 12:00:00 AM EDT [facility] Name Value Range Interpretation Code Description Data Eden rce(s) Supporting Document(s) [facility] by [facility] and reported by [facility]. ID Date Data Source [id number] 06/13/2020 08:00:00 AM EDT [facility] Name Value Range Interpretation Code Description Data Eden rce(s) Supporting Document(s) SARS coronavirus 2 RNA Not Detected [facility] [place] This lab was ordered by [facility] and reported by [facility]. ID Date Data Source [id number] 06/09/2020 12:00:00 AM EST [facility] Name Value Range Interpretation Code Description Data Eden rce(s) Supporting Document(s) SARS coronavirus 2 Ag NEGATIVE [facility] This lab was ordered by [facility] and reported by [facility]. ID Date Data Source [id number] 06/06/2020 03:00:00 PM EST [facility] Name Value Range Interpretation Code Description Data Eden rce(s) Supporting Document(s) SARS coronavirus 2 RNA Not Detected [facility] [place] This lab was ordered by [facility] and reported by [facility]. ID Date Data Source [id number] 06/02/2020 12:00:00 AM EST [facility] Name Value Range Interpretation Code Description Data Eden rce(s) Supporting Document(s) SARS coronavirus 2 Ag NEGATIVE [facility] This lab was ordered by [facility] and reported by [facility]. ID Date Data Source [id number] 05/30/2020 10:00:00 AM EST [facility] Name Value Range Interpretation Code Description Data Eden rce(s) Supporting Document(s) SARS coronavirus 2 RNA Not Detected [facility] This lab was ordered by [facility] and reported by [facility]. ID Date Data Source [id number] 05/26/2020 12:00:00 AM EST [facility] Name Value Range Interpretation Code Description Data Eden rce(s) Supporting Document(s) SARS coronavirus 2 Ag NEGATIVE [facility] This lab was ordered by [facility] and reported by [facility]. ID Date Data Source [id number] 05/23/2020 11:00:00 AM EST [facility] Name Value Range Interpretation Code Description Data Eden rce(s) Supporting Document(s) SARS coronavirus 2 RNA Not Detected [facility] This lab was ordered by [facility] and reported by [facility]. ID Date Data Source [id number] 05/19/2020 12:00:00 AM EST [facility] Name Value Range Interpretation Code Description Data Eden rce(s) Supporting Document(s) SARS coronavirus 2 Ag NEGATIVE [facility] This lab was ordered by [facility] and reported by [facility]. ID Date Data Source [id number] 05/16/2020 10:00:00 AM EST [facility] Name Value Range Interpretation Code Description Data Eden rce(s) Supporting Document(s) SARS coronavirus 2 RNA Not Detected [facility] [place] This lab was ordered by [facility] and reported by [facility]. ID Date Data Source [id number] 05/12/2020 12:00:00 AM EST [facility] Name Value Range Interpretation Code Description Data Eden rce(s) Supporting Document(s) SARS coronavirus 2 Ag NEGATIVE [facility] This lab was ordered by [facility] and reported by [facility]. ID Date Data Source [id number] 05/09/2020 10:30:00 AM EST [facility] Name Value Range Interpretation Code Description Data [place] rce(s) Supporting Document(s) SARS coronavirus 2 RNA Not Detected [facility] This lab was ordered by [facility] and reported by [facility]. ID Date Data Source [id number] 05/05/2020 12:00:00 AM EST [facility] Name Value Range Interpretation Code Description Data [place] rce(s) Supporting Document(s) SARS coronavirus 2 Ag [facility] This lab was ordered by [facility] and reported by [facility]. ID Date Data Source [id number] 05/02/2020 09:00:00 AM EST [facility] Name Value Range Interpretation Code Description Data [place] rce(s) Supporting Document(s) SARS coronavirus 2 RNA Not Detected [facility] This lab was ordered by [facility] and reported by [facility]. ID Date Data Source [id number] 04/28/2020 12:00:00 AM EST [facility] Name Value Range Interpretation Code Description Data Eden rce(s) Supporting Document(s) SARS coronavirus 2 Ag NEGATIVE [facility] This lab was ordered by [facility] and reported by [facility]. ID Date Data Source [id number] 04/25/2020 09:01:00 AM EST [facility] Name Value Range Interpretation Code Description Data [place] rce(s) Supporting Document(s) SARS coronavirus 2 RNA Not Detected [facility] This lab was ordered by [facility] and reported by [facility]. ID Date Data Source [id number] 04/21/2020 12:00:00 AM EST [facility] Name Value Range Interpretation Code Description Data [place] rce(s) Supporting Document(s) SARS coronavirus 2 Ag Negative [facility] This lab was ordered by [facility] and reported by [facility]. ID Date Data Source [id number] 04/18/2020 11:00:00 AM EST [facility] Name Value Range Interpretation Code Description Data [place] rce(s) Supporting Document(s) SARS coronavirus 2 RNA Not Detected [facility] This lab was ordered by [facility] and reported by [facility]. ID Date Data Source [id number] 04/15/2020 12:00:00 AM EST [facility] Name Value Range Interpretation Code Description Data Eden rce(s) Supporting Document(s) SARS coronavirus 2 Ag Negative [facility] This lab was ordered by [facility] and reported by [facility]. ID Date Data Source [id number] 04/11/2020 08:00:00 AM EST [facility] Name Value Range Interpretation Code Description Data [place] rce(s) Supporting Document(s) SARS coronavirus 2 RNA Not Detected [facility] This lab was ordered by [facility] and reported by [facility]. ID Date Data Source [id number] 04/04/2020 09:00:00 AM EST [facility] Name Value Range Interpretation Code Description Data [place] rce(s) Supporting Document(s) SARS coronavirus 2 RNA Not Detected [facility] This lab was ordered by [facility] and reported by [facility]. ID Date Data Source [id number] 03/28/2020 07:00:00 AM EST [facility] Name Value Range Interpretation Code Description Data [place] rce(s) Supporting Document(s) SARS coronavirus 2 RNA [facility] This lab was ordered by [facility] and reported by [facility]. ID Date Data Source [id number] 03/21/2020 09:30:00 AM EST [facility] Name Value Range Interpretation Code Description Data [place] rce(s) Supporting Document(s) SARS coronavirus 2 RNA [facility] This lab was ordered by [facility] and reported by [facility]. ID Date Data Source [id number] 03/14/2020 08:00:00 AM EST [facility] Name Value Range Interpretation Code Description Data [place] rce(s) Supporting Document(s) SARS coronavirus 2 RNA [facility] This lab was ordered by [facility] and reported by [facility]. ID Date Data Source [id number] 03/07/2020 07:57:00 AM EST [facility] Name Value Range Interpretation Code Description Data [place] rce(s) Supporting Document(s) SARS coronavirus 2 RNA [facility] This lab was ordered by [facility] and reported by [facility]. ID Date Data Source [id number] 02/29/2020 07:27:00 AM EST [facility] Name Value Range Interpretation Code Description Data [place] rce(s) Supporting Document(s) SARS coronavirus 2 RNA [facility] This lab was ordered by [facility] and reported by [facility]. ID Date Data Source [id number] 02/22/2020 12:00:00 PM EST [facility] Name Value Range Interpretation Code Description Data [place] rce(s) Supporting Document(s) SARS coronavirus 2 RNA [facility] This lab was ordered by [facility] and reported by [facility]. ID Date Data Source [id number] 02/15/2020 05:30:00 AM EST [facility] Name Value Range Interpretation Code Description Data [place] rce(s) Supporting Document(s) SARS coronavirus 2 RNA [facility] This lab was ordered by [facility] and reported by [facility]. ID Date Data Source [id number] 02/08/2020 03:00:00 PM EST [facility] Name Value Range Interpretation Code Description Data [place] rce(s) Supporting Document(s) SARS coronavirus 2 RNA [facility] This lab was ordered by [facility] and reported by [facility]. ID Date Data Source [id number] 02/01/2020 05:30:00 AM EST [facility] Name Value Range Interpretation Code Description Data [place] rce(s) Supporting Document(s) SARS coronavirus 2 RNA [facility] This lab was ordered by [facility] and reported by [facility]. ID Date Data Source [id number] 01/25/2020 08:00:00 AM EDT [facility] Name Value Range Interpretation Code Description Data [place] rce(s) Supporting Document(s) SARS coronavirus 2 RNA [facility] This lab was ordered by [facility] and reported by [facility]. ID Date Data Source [id number] 01/18/2020 06:57:00 AM EDT [facility] Name Value Range Interpretation Code Description Data [place] rce(s) Supporting Document(s) SARS coronavirus 2 RNA [facility] This lab was ordered by [facility] and reported by [facility]. ID Date Data Source [id number] 01/11/2020 08:30:00 AM EDT [facility] Name Value Range Interpretation Code Description Data [place] rce(s) Supporting Document(s) SARS coronavirus 2 RNA [facility] This lab was ordered by [facility] and reported by [facility]. ID Date Data Source [id number] 01/07/2020 09:00:00 AM EDT [facility] Name Value Range Interpretation Code Description Data [place] rce(s) Supporting Document(s) SARS coronavirus 2 RNA [facility] This lab was ordered by [facility] and reported by [facility]. ID Date Data Source [id number] 12/28/2019 09:00:00 AM EDT [facility] Name Value Range Interpretation Code Description Data [place] rce(s) Supporting Document(s) SARS coronavirus 2 RNA [facility] This lab was ordered by [facility] and reported by [facility]. ID Date Data Source [id number] 12/21/2019 07:50:00 AM EDT [facility] Name Value Range Interpretation Code Description Data [place] rce(s) Supporting Document(s) SARS coronavirus 2 RNA [facility] This lab was ordered by [facility] and reported by [facility]. ID Date Data Source [id number] 12/10/2019 10:23:00 AM EDT [facility] Name Value Range Interpretation Code Description Data [place] rce(s) Supporting Document(s) SARS coronavirus 2 RNA [facility] This lab was ordered by [facility] and reported by [facility]. ID Date Data Source [id number] 11/30/2019 11:43:00 AM EDT [facility] Name Value Range Interpretation Code Description Data [place] rce(s) Supporting Document(s) SARS coronavirus 2 RNA [facility] This lab was ordered by [facility] and reported by [facility]. Procedure Social History Code Duration Value Status Description Data Source(s ) Smoking 10/27/2020 12:00:00 AM EDT Never Smoker completed Never S moker eCW1 (Formerly [facility]) Smoking 09/08/2020 12:00:00 AM EDT Never Smoker completed Never S moker eCW1 (Formerly [facility]) Smoking 09/08/2020 12:00:00 AM EDT Never Smoker completed Never S moker eCW1 (Formerly [facility]) Smoking 06/16/2020 12:00:00 AM EDT Never Smoker completed Never S moker eCW1 (Formerly [facility]) Smoking 06/16/2020 12:00:00 AM EDT Never Smoker completed Never S moker eCW1 (Formerly [facility]) Smoking 06/16/2020 12:00:00 AM EDT Never Smoker completed Never S moker eCW1 (Formerly [facility]) Smoking 06/16/2020 12:00:00 AM EDT Never Smoker completed Never S moker eCW1 (Formerly [facility]) Smoking 06/16/2020 12:00:00 AM EDT Never Smoker completed Never S moker eCW1 (Formerly [facility]) Smoking 06/16/2020 12:00:00 AM EDT Never Smoker completed Never S moker eCW1 (Formerly [facility]) Smoking 06/16/2020 12:00:00 AM EDT Never Smoker completed Never S moker eCW1 (Formerly [facility]) Smoking 04/15/2020 12:00:00 AM EST Patient has never smoked co mpleted Patient has never smoked MEDENT ([facility], [facility]) Smoking 04/12/2020 12:00:00 AM EST Never Smoker completed Never S moker eCW1 (Formerly [facility]) Smoking 04/12/2020 12:00:00 AM EST Never Smoker completed Never S moker eCW1 (Formerly [facility]) Smoking 04/12/2020 12:00:00 AM EST Never Smoker completed Never S moker eCW1 (Formerly [facility]) Smoking 02/22/2020 12:00:00 AM EST Never Smoker completed Never S moker eCW1 (Formerly [facility]) Smoking 01/26/2020 12:00:00 AM EDT Never Smoker completed Never S moker eCW1 (Formerly [facility]) Vital Signs ID Date Data Source UNK Name Value Range Interpretation Code Description Data Source(s) Body weight 308.8 [lb_av] 308.8 [lb_av] eCW1 (Formerly [facility]) Body height 64.5 [in_i] 64.5 [in_i] eCW1 ([facility]) Body mass index (BMI) [Ratio] 52.18 kg/m2 52.18 kg/m2 eCW1 (Formerly [facility]) Heart rate 90 /min 90 /min eCW1 ([facility]) Respiratory rate 18 /min 18 /min eCW1 (Formerly [facility]) Body temperature 98.5 [degF] 98.5 [degF] eCW1 ( Formerly [facility]) Systolic blood pressure 122 mm[Hg] 122 mm[Hg] e CW1 (Formerly [facility]) Diastolic blood pressure 80 mm[Hg] 80 mm[Hg] eCW1 (Formerly [facility]) Body weight 313.8 [lb_av] 313.8 [lb_av] eCW1 ([facility]ly [facility]) Body height 64.5 [in_i] 64.5 [in_i] eCW1 ([facility]) Body mass index (BMI) [Ratio] 53.03 kg/m2 53.03 kg/m2 eCW1 (Formerly [facility]) Heart rate 116 /min 116 /min eCW1 ([facility]) Respiratory rate 20 /min 20 /min eCW1 ([facility]ly [facility]) Body temperature 97.6 [degF] 97.6 [degF] eCW1 ( Formerly [facility]) Systolic blood pressure 134 mm[Hg] 134 mm[Hg] e CW1 (Formerly [facility]) Diastolic blood pressure 86 mm[Hg] 86 mm[Hg] eCW1 (Formerly [facility]) Body weight 312.2 [lb_av] 312.2 [lb_av] eCW1 ([facility]ly [facility]) Body height 64.5 [in_i] 64.5 [in_i] eCW1 ([facility]) Body mass index (BMI) [Ratio] 52.76 kg/m2 52.76 kg/m2 eCW1 (Formerly [facility]) Heart rate 110 /min 110 /min eCW1 ([facility]) Respiratory rate 20 /min 20 /min eCW1 ([facility]ly [facility]) Body temperature 98.3 [degF] 98.3 [degF] eCW1 ( Formerly [facility]) Systolic blood pressure 120 mm[Hg] 120 mm[Hg] e CW1 (Formerly [facility]) Diastolic blood pressure 84 mm[Hg] 84 mm[Hg] eCW1 (Formerly [facility]) Systolic blood pressure 134 mm[Hg] 134 mm[Hg] M EDENT ([facility], [facility]) Diastolic blood pressure 92 mm[Hg] 92 mm[Hg] MEDENT ([facility], [facility]) Respiratory rate 18 /min 18 /min MEDENT ( [facility]) Oxygen saturation in Arterial blood by Pulse oximetry 97 % 97 % MEDENT ([facility], [facility]) Heart rate 78 /min 78 /min MEDENT ([facility], [facility]) Body temperature 99.1 [degF] 99.1 [degF] MEDENT ([facility], [facility]) Body weight 318.00 [lb_av] 318.00 [lb_av] MEDEN T ([facility], [facility]) Body weight 312 [lb_av] 312 [lb_av] eCW1 ([facility]) Body height 64.5 [in_i] 64.5 [in_i] eCW1 ([facility]) Body mass index (BMI) [Ratio] 52.72 kg/m2 52.72 kg/m2 eCW1 (Formerly [facility]) Heart rate 88 /min 88 /min eCW1 ([facility]) Respiratory rate 20 /min 20 /min eCW1 ([facility]ly [facility]) Body temperature 97.4 [degF] 97.4 [degF] eCW1 ( Formerly [facility]) Systolic blood pressure 140 mm[Hg] 140 mm[Hg] e CW1 (Formerly [facility]) Diastolic blood pressure 90 mm[Hg] 90 mm[Hg] eCW1 (Formerly [facility]) Body weight 309.12 [lb_av] 309.12 [lb_av] MEDEN T ([facility]) Body temperature 96.7 [degF] 96.7 [degF] MEDENT ([facility]) Body height 64.5 [in_i] 64.5 [in_i] MEDENT ([facility]) 5'4.50" Body mass index (BMI) [Ratio] 52.2 kg/m2 52.2 k g/m2 MEDENT ([facility] ) Oxygen saturation in Arterial blood by Pulse oximetry 97 % 97 % MEDENT ([facility], [facility]) Body temperature 98.5 [degF] 98.5 [degF] MEDENT ([facility], [facility]) Body weight 310.00 [lb_av] 310.00 [lb_av] MEDEN T ([facility], [facility]) Body height 65 [in_i] 65 [in_i] MEDENT ([facility], [facility]) 5'5" Body mass index (BMI) [Ratio] 51.6 kg/m2 51.6 k g/m2 MEDENT ([facility], [facility]) Systolic blood pressure 147 mm[Hg] 147 mm[Hg] M EDENT ([facility], [facility]) Diastolic blood pressure 90 mm[Hg] 90 mm[Hg] MEDENT ([facility], [facility]) Heart rate 80 /min 80 /min MEDENT ([facility]) Respiratory rate 20 /min 20 /min MEDENT ( [facility], [facility]) Patient Treatment Plan of Care Planned Activity Planned Date Details Description Data Source (s) montelukast 10 MG Oral Tablet 02/22/2020 12:00:00 AM EST eCW1 (Formerly [facility]) montelukast 10 MG Oral Tablet 02/22/2020 12:00:00 AM EST eCW1 (Formerly [facility]) montelukast 10 MG Oral Tablet 02/22/2020 12:00:00 AM EST eCW1 (Formerly [facility]) montelukast 10 MG Oral Tablet 02/22/2020 12:00:00 AM EST eCW1 (Formerly [facility]) montelukast 10 MG Oral Tablet 02/22/2020 12:00:00 AM EST eCW1 (Formerly [facility]) montelukast 10 MG Oral Tablet 02/22/2020 12:00:00 AM EST eCW1 (Formerly [facility]) montelukast 10 MG Oral Tablet 02/22/2020 12:00:00 AM EST eCW1 (Formerly [facility]) Hydrochlorothiazide 12.5 MG Oral Tablet 01/26/2020 12:00:00 AM EDT eCW1 (Formerly [facility])
== END 2021-01-16 09:57 | disposition home or self-care (01) ==
LOC: M ED 07:31
DX: S00.33XA Contusion of nose, initial encounter (principal); S63.502A Unspecified sprain of left wrist, initial encounter; Y04.8XXA Assault by other bodily force, initial encounter; Y92.129 Unspecified place in nursing home as the place of occurrence of the external cause; Y93.9 Activity, unspecified; Y99.9 Unspecified external cause status; Z88.0 Allergy status to penicillin; Z88.1 Allergy status to other antibiotic agents; Z88.8 Allergy status to other drugs, medicaments and biological substances; Z79.899 Other long term (current) drug therapy

== ENCOUNTER → 2021-05-03 | Outpatient (CLI) | payer BC ==
[2021-05-03 12:39] LABS: ALBUMIN 3.8 GM/DL (3.2-5.2); ALT/SGPT 30 U/L (12-78); BILIRUBIN,TOTAL 0.4 MG/DL (0.2-1.0); BLOOD UREA NITROGEN 18 MG/DL (7-18); CALCIUM LEVEL 9.2 MG/DL (8.5-10.1); CARBON DIOXIDE LEVEL 28 MEQ/L (21-32); CHLORIDE LEVEL 106 MEQ/L (98-107); CHOLESTEROL LEVEL 170 MG/DL (<200); CHOLESTEROL RISK RATIO 3.863 (<5); CREATININE FOR GFR 0.72 MG/DL (0.55-1.30); GLOMERULAR FILTRATION RATE > 60.0 (>51); GLUCOSE, FASTING 96 MG/DL (70-100); HDL CHOLESTEROL 44 MG/DL (>40); LDL CHOLESTEROL 97 MG/DL (<100); NON-HDL-C 126 MG/DL; POTASSIUM SERUM 3.8 MEQ/L (3.5-5.1); SODIUM LEVEL 142 MEQ/L (136-145); THYROID STIMULATING HORMONE 0.587 uIU/ML (0.358-3.740); TOTAL 25(OH) VITAMIN D 62.9 NG/ML (30.0-100.0); TOTAL PROTEIN 7.5 GM/DL (6.4-8.2); TRIGLYCERIDES LEVEL 144 MG/DL (<150)
== END ==
LOC: M WUC 09:32
PROVIDERS: ATTEND Nurse Practitioner Adult Health
DX: E55.9 Vitamin D deficiency, unspecified (principal); I10 Essential (primary) hypertension; E78.2 Mixed hyperlipidemia; E03.9 Hypothyroidism, unspecified

== ENCOUNTER → 2021-09-21 | Outpatient (CLI) | payer BC | LOC: M WHC 12:20 | PROVIDERS: ATTEND Nurse Practitioner Adult Health | DX: Z12.31 Encounter for screening mammogram for malignant neoplasm of breast (principal) ==

== ENCOUNTER → 2021-10-04 | Outpatient (CLI) | payer BC ==
[2021-10-04 18:44] LABS: ALBUMIN 3.6 GM/DL (3.2-5.2); ALT/SGPT 29 U/L (12-78); BILIRUBIN,TOTAL 0.4 MG/DL (0.2-1.0); BLOOD UREA NITROGEN 18 MG/DL (7-18); CALCIUM LEVEL 9.1 MG/DL (8.5-10.1); CARBON DIOXIDE LEVEL 26 MEQ/L (21-32); CHLORIDE LEVEL 107 MEQ/L (98-107); CHOLESTEROL LEVEL 174 MG/DL (<200); CHOLESTEROL RISK RATIO 4.243 (<5); CREATININE FOR GFR 0.74 MG/DL (0.55-1.30); GLOMERULAR FILTRATION RATE > 60.0 (>51); GLUCOSE, FASTING 95 MG/DL (70-100); HDL CHOLESTEROL 41 MG/DL (>40); LDL CHOLESTEROL 96 MG/DL (<100); NON-HDL-C 133 MG/DL; POTASSIUM SERUM 4.2 MEQ/L (3.5-5.1); SODIUM LEVEL 138 MEQ/L (136-145); TOTAL PROTEIN 7.3 GM/DL (6.4-8.2); TRIGLYCERIDES LEVEL 183 MG/DL (<150)
[2021-10-04 19:07] LABS: TOTAL 25(OH) VITAMIN D 62.2 NG/ML (30.0-100.0)
== END ==
LOC: M PLALAB 16:05
PROVIDERS: ATTEND Nurse Practitioner Adult Health
DX: E55.9 Vitamin D deficiency, unspecified (principal); I10 Essential (primary) hypertension; E03.9 Hypothyroidism, unspecified; E78.2 Mixed hyperlipidemia

== ENCOUNTER → 2021-10-04 | Outpatient (CLI) | payer BC | LOC: M WHC 15:02 | PROVIDERS: ATTEND Nurse Practitioner Adult Health | DX: R92.1 Mammographic calcification found on diagnostic imaging of breast (principal) | CPT/HCPCS: 77065; G0279 ==

== ENCOUNTER → 2022-01-16 | Outpatient (REF) | LOC: M LABSMTC 10:12 | PROVIDERS: ATTEND Family Medicine | DX: Z20.822 Contact with and (suspected) exposure to COVID-19 (principal); Z11.52 Encounter for screening for COVID-19 ==

== ENCOUNTER → 2022-06-22 | Outpatient (CLI) | payer BC ==
[2022-06-22 14:28] LABS: ALBUMIN 3.5 G/DL (3.2-5.2); ALKALINE PHOSPHATASE 145 U/L (46-116); ALT/SGPT 26 U/L (7.0-40); AST/SGOT 20 U/L (<34); BILIRUBIN,TOTAL 0.6 MG/DL (0.3-1.2); BLOOD UREA NITROGEN 25 MG/DL (9-23); CALCIUM LEVEL 9.3 MG/DL (8.5-10.1); CARBON DIOXIDE LEVEL 29 MMOL/L (20-31); CHLORIDE LEVEL 104 MMOL/L (98-107); CHOLESTEROL LEVEL 178 MG/DL (<200); CHOLESTEROL RISK RATIO 4.55 (<5); CREATININE FOR GFR 0.73 MG/DL (0.55-1.30); GLOMERULAR FILTRATION RATE > 60.0 (>51); GLUCOSE, FASTING 90 MG/DL (60-100); HDL CHOLESTEROL 39.1 MG/DL (>40); LDL CHOLESTEROL 102.9 MG/DL (<100); NON-HDL-C 138.9 MG/DL; POTASSIUM SERUM 4.5 MMOL/L (3.5-5.1); SODIUM LEVEL 139 MMOL/L (136-145); THYROID STIMULATING HORMONE 0.438 uIU/ML (0.55-4.78); TOTAL 25(OH) VITAMIN D 58.2 NG/ML (20.0-100.0); TOTAL PROTEIN 6.8 G/DL (5.7-8.2); TRIGLYCERIDES LEVEL 180 MG/DL (<150)
== END ==
LOC: M PLALAB 09:06
PROVIDERS: ATTEND Nurse Practitioner Adult Health
DX: I10 Essential (primary) hypertension (principal); E03.9 Hypothyroidism, unspecified; E78.5 Hyperlipidemia, unspecified; E55.9 Vitamin D deficiency, unspecified

== ENCOUNTER → 2022-06-26 | Outpatient (CLI) | payer BC | LOC: M WHC 12:38 | PROVIDERS: ATTEND Nurse Practitioner Women's Health | DX: D24.2 Benign neoplasm of left breast (principal) | CPT/HCPCS: 77065; G0279 ==

== ENCOUNTER → 2022-09-19 | Outpatient (CLI) | payer BC ==
[2022-09-19 11:09] LABS: ALBUMIN 3.8 G/DL (3.2-5.2); ALKALINE PHOSPHATASE 165 U/L (46-116); ALT/SGPT 25 U/L (7.0-40); AST/SGOT 20 U/L (<34); BILIRUBIN,TOTAL 0.5 MG/DL (0.3-1.2); BLOOD UREA NITROGEN 18 MG/DL (9-23); CALCIUM LEVEL 8.8 MG/DL (8.5-10.1); CARBON DIOXIDE LEVEL 28 MMOL/L (20-31); CHLORIDE LEVEL 106 MMOL/L (98-107); GLOMERULAR FILTRATION RATE > 60.0 (>51); GLUCOSE, FASTING 103 MG/DL (60-100); SODIUM LEVEL 141 MMOL/L (136-145); TOTAL PROTEIN 6.9 G/DL (5.7-8.2)
[2022-09-19 11:11] LABS: THYROID STIMULATING HORMONE 2.016 uIU/ML (0.55-4.78)
== END ==
LOC: M PLALAB 07:46
PROVIDERS: ATTEND Nurse Practitioner Adult Health
DX: E03.9 Hypothyroidism, unspecified (principal); I10 Essential (primary) hypertension

== ENCOUNTER → 2023-01-24 | Outpatient (CLI) | payer BC | LOC: M WHC 08:31 | PROVIDERS: ATTEND Nurse Practitioner Adult Health | DX: Z12.31 Encounter for screening mammogram for malignant neoplasm of breast (principal) ==

== ENCOUNTER → 2023-08-01 | Outpatient (CLI) | payer BC ==
[2023-08-01 11:45] LABS: ALBUMIN 3.8 G/DL (3.2-5.2); ALKALINE PHOSPHATASE 153 U/L (46-116); ALT/SGPT 31 U/L (7.0-40); AST/SGOT 24 U/L (<34); BILIRUBIN,TOTAL 0.5 MG/DL (0.3-1.2); BLOOD UREA NITROGEN 27 MG/DL (9-23); CALCIUM LEVEL 9.3 MG/DL (8.3-10.6); CARBON DIOXIDE LEVEL 28 MMOL/L (20-31); CHLORIDE LEVEL 104 MMOL/L (98-107); CHOLESTEROL LEVEL 191 MG/DL (<200); CHOLESTEROL RISK RATIO 3.92 (<5); CREATININE FOR GFR 0.89 MG/DL (0.55-1.30); GLOMERULAR FILTRATION RATE > 60.0 (>45); GLUCOSE, FASTING 87 MG/DL (74-106); HDL CHOLESTEROL 48.7 MG/DL (>40); LDL CHOLESTEROL 121.5 MG/DL (<100); NON-HDL-C 142.3 MG/DL; POTASSIUM SERUM 4.2 MMOL/L (3.5-5.1); SODIUM LEVEL 139 MMOL/L (136-145); TOTAL PROTEIN 7.2 G/DL (5.7-8.2); TRIGLYCERIDES LEVEL 104 MG/DL (<150)
[2023-08-01 11:48] LABS: THYROID STIMULATING HORMONE 1.194 uIU/ML (0.55-4.78)
[2023-08-01 11:49] LABS: TOTAL 25(OH) VITAMIN D 88.8 NG/ML (20.0-100.0)
== END ==
LOC: M PLALAB 08:02
PROVIDERS: ATTEND Nurse Practitioner Adult Health
DX: I10 Essential (primary) hypertension (principal); E78.2 Mixed hyperlipidemia; E03.9 Hypothyroidism, unspecified; E55.9 Vitamin D deficiency, unspecified

== ENCOUNTER → 2023-08-30 | Outpatient (RCR) | payer BC | LOC: M PT 08-27 07:35 | PROVIDERS: ATTEND Physician Assistant | DX: M47.896 Other spondylosis, lumbar region (principal); M70.61 Trochanteric bursitis, right hip; M51.16 Intervertebral disc disorders with radiculopathy, lumbar region ==

== ENCOUNTER 2023-09-18 13:24 | Outpatient (RCR) | payer BC | END 2023-09-29 | LOC: M PT 13:24 | PROVIDERS: ATTEND Physician Assistant | DX: M47.896 Other spondylosis, lumbar region (principal); M70.61 Trochanteric bursitis, right hip; M51.16 Intervertebral disc disorders with radiculopathy, lumbar region ==

== ENCOUNTER → 2023-11-12 | Outpatient (REF) | LOC: M EMP 10:30 | PROVIDERS: ATTEND Family Medicine | DX: Z20.822 Contact with and (suspected) exposure to COVID-19 (principal) ==

== ENCOUNTER 2023-12-09 11:40 | Day surgery (SDC) | payer BC ==
[~2023-12-09] VITALS: Ht 165.1 cm; Wt 131.5 kg
[~2023-12-09 11:40] MED LIST changes: +ATOR80TA59 PO; +ERGO500029 PO; +FURO40TA2 PO; +IRBE75TA11 PO; +LEVO150T7 PO; +MONT10TA97 PO; +MOTR200T44 PO; +OMEP-173 PO; -PROHANCE 279.3MG/ML 15ML VIAL As Ordered ONE; -PROHANCE 279.3MG/ML 5ML VIAL As Ordered ONE; +SERT50TA29 PO; +THERTAB52 PO
[2023-12-09] MEDS: NS 1,000 ML IV ONE (12:31)
[2023-12-09] MEDS ORDERED: propofoL 200 MG/20 ML VIAL As Ordered ONE (12:34)
[2023-12-09 13:58] VITALS: TEMP 97.7
[2023-12-09 14:16] VITALS: BP 127/59; O2SAT 97
== END 2023-12-09 14:31 | disposition home or self-care (01) ==
LOC: M OPP 11:40
PROVIDERS: ATTEND Internal Medicine Gastroenterology
DX: Z12.11 Encounter for screening for malignant neoplasm of colon (principal); Z83.719 Family history of colon polyps, unspecified; D12.6 Benign neoplasm of colon, unspecified; K64.0 First degree hemorrhoids; Z79.890 Hormone replacement therapy; Z79.899 Other long term (current) drug therapy; Z88.0 Allergy status to penicillin; Z88.1 Allergy status to other antibiotic agents; Z88.2 Allergy status to sulfonamides; Z88.7 Allergy status to serum and vaccine; Z91.018 Allergy to other foods; Z91.010 Allergy to peanuts; Z91.048 Other nonmedicinal substance allergy status

== ENCOUNTER → 2024-02-14 | Outpatient (CLI) | payer BC ==
[2024-02-14 18:03] LABS: THYROID STIMULATING HORMONE 0.522 uIU/ML (0.55-4.78)
[2024-02-14 18:05] LABS: TOTAL 25(OH) VITAMIN D 80.8 NG/ML (20.0-100.0)
[2024-02-14 18:07] LABS: ALBUMIN 3.5 G/DL (3.2-5.2); ALKALINE PHOSPHATASE 152 U/L (35-104); ALT/SGPT 26 U/L (7.0-40); AST/SGOT 22 U/L (<34); BILIRUBIN,TOTAL 0.3 MG/DL (0.3-1.2); BLOOD UREA NITROGEN 20 MG/DL (9-23); CALCIUM LEVEL 9.4 MG/DL (8.3-10.6); CARBON DIOXIDE LEVEL 28 MMOL/L (20-31); CHLORIDE LEVEL 109 MMOL/L (98-107); CHOLESTEROL LEVEL 179 MG/DL (<200); CHOLESTEROL RISK RATIO 4.09 (<5); CREATININE FOR GFR 0.74 MG/DL (0.55-1.30); FREE T4 1.54 NG/DL (0.89-1.76); GLOMERULAR FILTRATION RATE > 60.0 (>45); GLUCOSE, FASTING 115 MG/DL (74-106); HDL CHOLESTEROL 43.7 MG/DL (>40); LDL CHOLESTEROL 103.3 MG/DL (<100); NON-HDL-C 135.3 MG/DL; POTASSIUM SERUM 4.3 MMOL/L (3.5-5.1); SODIUM LEVEL 144 MMOL/L (136-145); TRIGLYCERIDES LEVEL 160 MG/DL (<150)
== END ==
LOC: M PLALAB 15:55
PROVIDERS: ATTEND Nurse Practitioner Adult Health
DX: I10 Essential (primary) hypertension (principal); E55.9 Vitamin D deficiency, unspecified; E03.9 Hypothyroidism, unspecified; E78.2 Mixed hyperlipidemia

== ENCOUNTER → 2024-02-14 | Outpatient (CLI) | payer BC | LOC: M WHC 15:12 | PROVIDERS: ATTEND Nurse Practitioner Adult Health | DX: Z12.31 Encounter for screening mammogram for malignant neoplasm of breast (principal); N63.20 Unspecified lump in the left breast, unspecified quadrant ==

== ENCOUNTER → 2024-04-17 | Outpatient (REF) | LOC: M EMP 09:09 | PROVIDERS: ATTEND Family Medicine | DX: Z01.89 Encounter for other specified special examinations (principal) ==

== ENCOUNTER → 2024-10-29 | Outpatient (CLI) | payer BC ==
[2024-10-29 13:18] LABS: FREE T4 1.35 NG/DL (0.89-1.76)
== END ==
LOC: M WUC 08:38
PROVIDERS: ATTEND Nurse Practitioner Adult Health
DX: E03.9 Hypothyroidism, unspecified (principal)

== ENCOUNTER 2025-02-20 08:52 | Emergency (ER) | payer BC ==
[~2025-02-20] VITALS: Ht 165.1 cm; Wt 135.3 kg
[2025-02-20 08:55] VITALS: TEMP 97.9
[2025-02-20 11:28] LABS: KETONE, URINE AUTO RFX NEGATIVE (NEGATIVE); LEUKOCYTE ESTERASE UR AUTO RFX NEGATIVE (NEGATIVE); MUCUS, URINE RFX SMALL (NEGATIVE); NITRITE, URINE AUTO RFX NEGATIVE (NEGATIVE); RBC, URINE AUTO RFX 1 /HPF (0-3); SQUAM EPITHELIAL CELL UR AURFX 1 /HPF (0-6); WBC, URINE AUTO RFX 1 /HPF (0-3)
[2025-02-20 11:48] LABS: BASO # 0.0 10^3/uL (0.0-0.2); BASO % 0.3 % (0.0-1.0); EOS # 0.1 10^3/uL (0.0-0.5); EOS % 0.9 % (0.0-3.0); LYMPH # 1.5 10^3/uL (1.5-5.0); LYMPH % 14.6 % (24.0-44.0); MONO # 0.6 10^3/uL (0.0-0.8); MONO % 5.8 % (2.0-8.0); NEUTROPHILS # 8.2 10^3/uL (1.5-8.5); NEUTROPHILS % 78.1 % (36.0-66.0); PLATELET COUNT, AUTOMATED 218 10^3/uL (150-450)
[2025-02-20] MEDS ORDERED: ISOVUE-370 76% 100 ML VIAL As Ordered ONE (12:03)
[2025-02-20 12:18] LABS: ALT/SGPT 36 U/L (7.0-40); AST/SGOT 34 U/L (<34)
[2025-02-20] MEDS: PANTOPRAZOLE 40MG TAB PO ONE (12:22)
[2025-02-20] MEDS: ONDANSETRON 4MG/2ML VIAL IV ONE (12:23)
[2025-02-20] MEDS: KETOROLAC 30 MG/ML 1 ML VIAL IV ONE (12:24)
[2025-02-20] MEDS ORDERED: PRED10TA2 PO (13:17)
[2025-02-20 13:23] VITALS: BP 137/63; O2SAT 97
== END 2025-02-20 13:42 | disposition home or self-care (01) ==
LOC: M ED 08:52
DX: K52.9 Noninfective gastroenteritis and colitis, unspecified (principal); M51.35 Other intervertebral disc degeneration, thoracolumbar region; K44.9 Diaphragmatic hernia without obstruction or gangrene; N28.1 Cyst of kidney, acquired; R16.0 Hepatomegaly, not elsewhere classified; I10 Essential (primary) hypertension; K57.30 Diverticulosis of large intestine without perforation or abscess without bleeding; D18.09 Hemangioma of other sites; G43.909 Migraine, unspecified, not intractable, without status migrainosus; Z87.442 Personal history of urinary calculi; Z88.0 Allergy status to penicillin; Z88.2 Allergy status to sulfonamides; Z88.7 Allergy status to serum and vaccine; Z88.8 Allergy status to other drugs, medicaments and biological substances; Z88.5 Allergy status to narcotic agent; Z79.02 Long term (current) use of antithrombotics/antiplatelets; Z79.1 Long term (current) use of non-steroidal anti-inflammatories (NSAID); Z79.899 Other long term (current) drug therapy
CPT/HCPCS: 74177; 80047; 80076; 81001; 83690; 85025; 96374; 96375; 99284; J1885; J2405; Q9967

== ENCOUNTER → 2025-03-11 | Outpatient (CLI) | payer BC ==
[~2025-03-11] MED LIST changes: +PRED10TA2 PO
== END ==
LOC: M WHC 08:12
PROVIDERS: ATTEND Nurse Practitioner Adult Health
DX: Z12.31 Encounter for screening mammogram for malignant neoplasm of breast (principal); R92.323 Mammographic fibroglandular density, bilateral breasts